=== PATIENT | male | born 1990 | race Caucasian/White ===

== ENCOUNTER 2017-08-24 13:41 | Inpatient (IN) | payer MEDICAID ==
[2017-08-24] VITALS (13 sets, daily range): BP systolic 90–110; BP diastolic 27–80
[~2017-08-24] VITALS: Ht 162.6 cm; Wt 66.8 kg
[2017-08-24] MEDS ORDERED: LORazepam Inj 2mg/ml 1ml IV ONE ×3 (13:45→15:00)
[2017-08-24] MEDS ORDERED: Acetaminophen 650 MG SUPP RECTAL ONE (14:15)
[2017-08-24 14:17] LABS: BASOPHILS % (AUTO) 1.3 % (0.0-2.0); EOSINOPHILS % (AUTO) 0.1 % (0.0-3.0); LYMPHOCYTES % (AUTO) 31.9 % (20.0-45.0); MEAN CORPUSCULAR HEMOGLOBIN 30.7 PG (27.0-31.0); MEAN CORPUSCULAR HGB CONC 32.2 G/DL (32.0-36.0); MEAN CORPUSCULAR VOLUME 95 FL (80-99); MEAN PLATELET VOLUME 5.9 FL (6.5-10.1); MONOCYTES % (AUTO) 9.6 % (1.0-10.0); PLATELET COUNT 402 K/UL (150-450); RED BLOOD COUNT 4.01 M/UL (4.70-6.10); RED CELL DISTRIBUTION WIDTH 12.6 % (11.6-14.8); WHITE BLOOD COUNT 8.3 K/UL (4.8-10.8)
[2017-08-24 14:28] LABS: ANION GAP 25 mmol/L (5-15); CALCIUM 9.7 MG/DL (8.5-10.1); CARBON DIOXIDE 15 MMOL/L (21-32); CHLORIDE 99 MMOL/L (98-107); CREATININE 1.9 MG/DL (0.55-1.30); GLOMERULAR FILTRATION RATE 42.4 mL/min (>60); POTASSIUM 4.8 MMOL/L (3.5-5.1); SODIUM 139 MMOL/L (136-145)
[2017-08-24 14:42] LABS: ALANINE AMINOTRANSFERASE 49 U/L (12-78); ALBUMIN/GLOBULIN RATIO 1.3 (1.0-2.7); ALCOHOL < 3 mg/dL; ASPARTATE AMINO TRANSFERASE 39 U/L (15-37); TOTAL PROTEIN 8.3 G/DL (6.4-8.2)
[2017-08-24 14:43] LABS: ACETAMINOPHEN < 2 MCG/ML (10-30)
[2017-08-24 14:45] LABS: BILIRUBIN,DIRECT 0.3 MG/DL (0.0-0.3)
--- NOTE | 2017-08-24 15:34 | Emergency Room Report ---
History of Present Illness General Chief Complaint: Overdose Source: Patient (ANEESH HUFF) Present Illness HPI The patient is a 26 -year-old male brought in by ambulance for possible overdose. The patient's friend was said to have called 911 after the patient took unknown amount of meth and bath salts together. The friend saw the patient shaking on the ground. Unknown medical history. The patient is unable to provide information at this time. (ANEESH HUFF) Allergies: Coded Allergies: No Known Allergies (Unverified , 08/24/17) Patient History Past Medical History: see triage record Pertinent Family History: unable to obtain Social History: Reports: drug use Reviewed Nursing Documentation: PMH: Agreed, PSxH: Agreed (ANEESH HUFF) Review of Systems All Other Systems: limited (ANEESH HUFF) Physical Exam Vital Signs Date Time Temp Pulse Resp B/P (MAP) Pulse Ox O2 Delivery O2 Flow Rate FiO2 08/24/17 13:37 136 18 146/131 95 Room Air 08/24/17 14:00 107.5 2.0 Sp02 EP Interpretation: reviewed, normal General Appearance: moderate distress Head: normocephalic, atraumatic Eyes: bilateral eye EOMI, bilateral eye other - dilated ENT: normal pharynx, uvula midline, moist mucus membranes Neck: normal inspection, full range of motion, supple Respiratory: no retraction, no accessory muscle use, no wheezing, rhonchi Cardiovascular #1: no edema, no murmur, no rub, tachycardia Gastrointestinal: normal bowel sounds, non tender, soft, non-distended, no guarding, no rebound Musculoskeletal: normal range of motion, other - Periodically contracts all muscles Psychiatric: other - ALOC Skin: normal turgor, other - vitiligo Lymphatic: no adenopathy (ANEESH HUFF) Medical Decision Making PA Attestation Dr. Francois is my supervising physician. Patient management was discussed with my supervising physician (ANEESH HUFF) Diagnostic Impression: Primary Impression: Malignant hyperthemia Qualified Codes: T88.3XXA - Malignant hyperthermia due to anesthesia, initial encounter Additional Impressions: Rhabdomyolysis Qualified Codes: M62.82 - Rhabdomyolysis KACY (acute kidney injury) Drug overdose Qualified Codes: T50.904A - Poisoning by unspecified drugs, medicaments and biological substances, undetermined, initial encounter ER Course The patient is a 26 -year-old male brought in by ambulance for possible overdose. Differential diagnoses considered but not limited to drug abuse, malignant hyperthermia, seizure, among others PE: tachycardia, tachypnea, and significantly febrile at 107.5F. Hypoxia noted as well. A&Ox0 Pupils are equally round. Minimally reactive to light. Pt is having multiple episodes of muscle spasm with jaw clenching Tachycardia. No MRG Bilat rhonchi with tachypnea Abd soft and non distended Skin warm and dry Labs: CBC and CMP are unremarkable. Lactic acid is elevated at 14.4 Drug screen positive for amphetamines ABG most significant for p02 of 49.[address] chest shows primarily L lower lobe aspiration with smaller effusion of R lower lobe Aggressive cooling measures used including multiple liters of IV fluids, cooling blanket, and ice packs. Temperature has reduced to normal levels. Pt is less tachycardic. O2 sat is well with 6L via mask. No need for intubation at this time. pt is being closely monitored and appears to be improving. He is given multiple rounds of IV Ativan as well as several liters of NS. He appears to be improving at this time. Dr. Francois has spoken with Dr. Vance regarding admission. He is in serious but stable condition at this time. Vitals have improved significantly Laboratory Tests Test 08/24/17 13:45 08/24/17 13:55 08/24/17 16:32 08/24/17 18:35 White Blood Count 8.3 K/UL (4.8-10.8) Red Blood Count 4.01 M/UL (4.70-6.10) L Hemoglobin 12.3 G/DL (14.2-18.0) L Hematocrit 38.2 % (42.0-52.0) L Mean Corpuscular Volume 95 FL (80-99) Mean Corpuscular Hemoglobin 30.7 PG (27.0-31.0) Mean Corpuscular Hemoglobin Concent 32.2 G/DL (32.0-36.0) Red Cell Distribution Width 12.6 % (11.6-14.8) Platelet Count 402 K/UL (150-450) Mean Platelet Volume 5.9 FL (6.5-10.1) L Neutrophils (%) (Auto) 57.0 % (45.0-75.0) Lymphocytes (%) (Auto) 31.9 % (20.0-45.0) Monocytes (%) (Auto) 9.6 % (1.0-10.0) Eosinophils (%) (Auto) 0.1 % (0.0-3.0) Basophils (%) (Auto) 1.3 % (0.0-2.0) Sodium Level 139 MMOL/L (136-145) Potassium Level 4.8 MMOL/L (3.5-5.1) Chloride Level 99 MMOL/L (98-107) Carbon Dioxide Level 15 MMOL/L (21-32) L Anion Gap 25 mmol/L (5-15) H Blood Urea Nitrogen 20 mg/dL (7-18) H Creatinine 1.9 MG/DL (0.55-1.30) H Estimate Glomerular Filtration Rate 42.4 mL/min (>60) Glucose Level 80 MG/DL (74-106) Calcium Level 9.7 MG/DL (8.5-10.1) Ferritin 213 NG/ML (8-388) Total Bilirubin 1.2 MG/DL (0.2-1.0) H Direct Bilirubin 0.3 MG/DL (0.0-0.3) Aspartate Amino Transferase (AST) 39 U/L (15-37) H Alanine Aminotransferase (ALT) 49 U/L (12-78) Alkaline Phosphatase 59 U/L (46-116) Total Creatine Kinase 236 U/L (26-308) Creatine Kinase MB 2.0 NG/ML (0.0-3.6) Troponin I 0.000 ng/mL (0.000-0.056) Total Protein 8.3 G/DL (6.4-8.2) H Albumin 4.7 G/DL (3.4-5.0) Globulin 3.6 g/dL Albumin/Globulin Ratio 1.3 (1.0-2.7) Salicylates Level 0.8 ug/mL (2.8-20) L Urine Opiates Screen Negative (NEGATIVE) Acetaminophen Level < 2 MCG/ML (10-30) L Urine Barbiturates Screen Negative (NEGATIVE) Phencyclidine (PCP) Screen Negative (NEGATIVE) Urine Amphetamines Screen Positive (NEGATIVE) H Urine Benzodiazepines Screen Negative (NEGATIVE) Urine Cocaine Screen Negative (NEGATIVE) Urine Marijuana (THC) Screen Positive (NEGATIVE) H Serum Alcohol < 3 mg/dL Lactic Acid Level 14.40 mmol/L (0.66-2.22) H 0.90 mmol/L (0.66-2.22) Arterial Blood pH 7.290 (7.350-7.450) Arterial Blood Partial Pressure CO2 45.5 mmHg (35.0-45.0) H Arterial Blood Partial Pressure O2 49.9 mmHg (75.0-100.0) Arterial Blood HCO3 21.5 mmol/L (22.0-26.0) L Arterial Blood Oxygen Saturation 80.6 % (92.0-98.0) L Arterial Blood Base Excess -5 Jorge Test Positive Lab Results Impression CBC and CMP are unremarkable. Lactic acid is elevated at 14.4 Drug screen positive for amphetamines ABG most significant for p02 of 49.9 (ANEESH HUFF) ER Course See PA obtained HPI, PE, A/P Patient was boarding in the ER for entirety of my shift from 2-10pm - there were no ICU beds available, thus we provided extensive critical care for this sick patient. Please see my critical care additional note Of note, patient's HR down from 160 on arrival to ~100 at time of endorsement to Dr Jarrell at 10pm Patient had mild hypoxia on ABG however CT chest showed only small left sided and right sided aspiration However by time of shift change, patient had been switched from NRB to simple mask at 2L for supplemental O2 With improving HR and reduced temp, we decided not to intubate patient at this time as he was significantly improving Initial CK was WNL but I expect he will have significantly elevated rhabdo given extensive shivering he exhibited on arrival Additionally, we expect profound secondary dehydration from the high fever and sweating Pre-emptively was give given multiple fluid boluses in the ED during his boarding in the ER Patient admitted to ICU (CELSO FRANCOIS M.D.) EKG Diagnostic Results EP Interpretation: Sinus tachycardia Rate: tachycardiac Rhythm: NSR ST Segments: no acute changes ASA given to the pt in ED: No PA Scribe Text EKG seen and interpreted with supervision physician (TERZIAN,ANEESH P.A.) Chest X-Ray Diagnostic Results Chest X-Ray Diagnostic Results : Chest X-Ray Ordered: Yes # of Views/Limited/Complete: 1 View Indication: Shortness of Breath EP Interpretation: Yes PA Xray: Interpretation reviewed, by supervising MD, and agrees with findings. Interpretation: no pneumothorax, other Impression: Other Electronically Signed by: Aneesh Huff PA-C (ANEESH HUFF) CT/MRI/US Diagnostic Results CT/MRI/US Diagnostic Results #1: Imaging Test Ordered: CT head Impression unremarkable CT/MRI/US Diagnostic Results #2: Imaging Test Ordered: CT chest Impression CT chest shows primarily L lower lobe aspiration with smaller effusion of R lower lobe (ANEESH HUFF) Last Vital Signs Date Time Temp Pulse Resp B/P (MAP) Pulse Ox O2 Delivery O2 Flow Rate FiO2 08/24/17 15:00 101.5 136 36 110/58 97 Nasal Cannula 2.0 Status: improved (ANEESH HUFF) Disposition: ADMITTED INPATIENT Condition: Critical Referrals: NOT CHOSEN IPA/,REFERRING (PCP) ANEESH HUFF Aug 24, 2017 15:34 CELSO FRANCOIS M.D. Aug 25, 2017 20:27
--- NOTE | 2017-08-24 16:36 | Consultation ---
Consult Note Assessment/Plan dict polydrug OD malignant hyperthermia AMS acidosis resp failure, hypoxic icu CT brain supportive care CELSO CAMEJO Aug 24, 2017 16:36
[2017-08-24 16:42] LABS: ABG BASE EXCESS -5; ABG PCO2 45.5 mmHg (35.0-45.0)
[2017-08-24 16:43] LABS: ABG ALLEN TEST POSITIVE
[2017-08-24] MEDS ORDERED: LORazepam Inj 2mg/ml 1ml IV PRN (16:45)
[2017-08-24] MEDS ORDERED: Acetaminophen 650 MG SUPP RECTAL PRN (16:45)
[2017-08-24 17:18] LABS: REFLEX LACTIC ACID YES OR NO YES
[2017-08-24] MEDS ORDERED: NKM (19:21)
--- NOTE | 2017-08-24 21:33 | Emergency Room Report ---
History of Present Illness General Chief Complaint: Overdose Source: EMS Present Illness Allergies: Coded Allergies: No Known Allergies (Unverified , 08/24/17) Nursing Documentation-PMH Past Medical History Deferred: Pt Cognitively Impaired Past Medical History: Deferred Physical Exam Vital Signs Date Time Temp Pulse Resp B/P (MAP) Pulse Ox O2 Delivery O2 Flow Rate FiO2 08/24/17 13:37 106.0 136 18 146/131 95 Room Air 08/24/17 14:00 2.0 Procedures Critical Care Time Critical Care Time 45minutes CONOR Schmid was primary provider for this patient however given serious nature of suspected malignant hyperthermia - temp 108, HR 160, I was involved throughout stay. Critical care time includes review of laboratory tests, imaging, review of ABG, review of CT, dosing fluids, tylenol, cooling measures, discussion with patient and family (if available), review of code status/POLS (if available). Critical care time also likely includes assessment of fluid status, stabilization of vital signs, selection and dosing of appropriate antibiotics, selection and dosing of Aspirin/Plavix/Heparin/Lovenox, discussion with PMD/ attending hospitalist/service operations manager. Critical care time does not include any procedures which are documented elsewhere in this EMR. Medical Decision Making Diagnostic Impression: Primary Impression: Malignant hyperpyrexia Qualified Codes: T88.3XXA - Malignant hyperthermia due to anesthesia, initial encounter Additional Impression: Drug overdose Qualified Codes: T50.904A - Poisoning by unspecified drugs, medicaments and biological substances, undetermined, initial encounter Last Vital Signs Date Time Temp Pulse Resp B/P (MAP) Pulse Ox O2 Delivery O2 Flow Rate FiO2 08/24/17 20:15 97.7 104 24 92/65 94 Simple Mask 5.0 Referrals: NOT CHOSEN RUPERTO/,REFERRING (PCP) CELSO FRANCOIS M.D. Aug 24, 2017 21:33
--- NOTE | 2017-08-24 22:32 | Consultation ---
DATE OF CONSULTATION: 08/24/2017 PULMONARY CONSULTATION TIME SEEN: At 4:15 p.m. HISTORY OF PRESENT ILLNESS: The patient is a 26-year-old male, brought in by paramedics from home. A friend apparently called 911 after the patient took an unknown amount of methamphetamine and bath salts. Apparently, he both injected and snorted the methamphetamine and snorted bath salts. The patient was on the ground shaking. PAST MEDICAL HISTORY: Unknown. MEDICATIONS: Unknown. ALLERGIES: None known. REVIEW OF SYSTEMS: Cannot be obtained, the patient is unresponsive. PHYSICAL EXAMINATION: GENERAL: He is well developed and well nourished. VITAL SIGNS: On arrival, the temperature was 107.5 degrees and the heart rate stanton to 160. With cooling measures and Tylenol, the temperature improved to normal at this time and the heart rate is down to 136. The saturation was initially 97%, but now has dropped on room air to 70% and the patient has been placed on a non-rebreather mask. HEENT: Head is normocephalic. NECK: No jugular vein distention. CHEST: Has rhonchi. CARDIAC: Rhythm is regular. Tachycardia. ABDOMEN: Soft and nontender. Liver and spleen not felt. EXTREMITIES: No clubbing, cyanosis, or edema. NEUROLOGIC: Unresponsive, flaccid. LABORATORY AND DIAGNOSTIC DATA: Laboratory studies, the toxicology is positive for amphetamines and marijuana. The white blood count is normal, hemoglobin is 12.3, and platelets are normal. Chemistry shows BUN 20 and creatinine 1.9. CPK is 236. Bilirubin is 1.2. Bicarbonate is 15. Total protein 8.3. Albumin 4.7. Chest x-ray is pending. IMPRESSIONS: 1. Polydrug overdose. 2. Malignant hyperthermia. 3. Acute respiratory failure, hypoxic type. 4. Altered mental status. PLAN: The patient will have a stat chest x-ray. We will check lactic acid in view of the low bicarbonate. CT of the brain will be obtained. He is critically ill and prognosis is guarded. Jorge Luis Babin M.D. DR: Ebony JOB#: [id number] CC: Keri Vance M.D.; Fax#: [phone]
--- NOTE | 2017-08-24 23:25 | Cardiology Progress Note ---
Assessment/Plan Assessment/Plan The patient is seen and examined, full consult note will be dictated shortly. Objective Last 24 Hour Vital Signs Date Time Temp Pulse Resp B/P (MAP) Pulse Ox O2 Delivery O2 Flow Rate FiO2 08/24/17 23:03 100 22 104/45 94 Simple Mask 6.0 08/24/17 21:59 97.9 100 20 105/42 100 Simple Mask 6.0 08/24/17 20:15 97.7 104 24 92/65 94 Simple Mask 5.0 08/24/17 19:00 97.5 105 24 93/42 98 Non-Rebreather 08/24/17 18:00 107 24 90/39 99 Non-Rebreather 08/24/17 17:35 98.4 108 24 93/42 96 Non-Rebreather 08/24/17 17:00 111 24 90/44 94 Non-Rebreather 08/24/17 16:26 98.0 114 26 95 Non-Rebreather 08/24/17 16:20 94.0 115 24 102/49 70 Nasal Cannula 2.0 08/24/17 16:00 98.4 117 24 95/60 95 Nasal Cannula 2.0 08/24/17 15:30 98.0 120 36 99/63 95 Nasal Cannula 2.0 08/24/17 15:00 101.5 136 36 110/58 97 Nasal Cannula 2.0 08/24/17 15:00 101.5 08/24/17 14:20 104.3 150 28 107/80 97 Nasal Cannula 2.0 08/24/17 14:00 107.5 160 28 90/27 97 Nasal Cannula 2.0 08/24/17 13:41 136 18 Room Air 08/24/17 13:37 106.0 136 18 146/131 95 Room Air Intake and Output 08/24/17 08/25/17 19:00 07:00 Intake Total 3000 ml 1450 ml Output Total 650 ml Balance 3000 ml 800 ml Intake Oral 0 ml IV Total 3000 ml 1450 ml Output Urine Total 650 ml Laboratory Tests Test 08/24/17 13:45 08/24/17 13:55 08/24/17 16:32 08/24/17 18:35 White Blood Count 8.3 K/UL (4.8-10.8) Red Blood Count 4.01 M/UL (4.70-6.10) L Hemoglobin 12.3 G/DL (14.2-18.0) L Hematocrit 38.2 % (42.0-52.0) L Mean Corpuscular Volume 95 FL (80-99) Mean Corpuscular Hemoglobin 30.7 PG (27.0-31.0) Mean Corpuscular Hemoglobin Concent 32.2 G/DL (32.0-36.0) Red Cell Distribution Width 12.6 % (11.6-14.8) Platelet Count 402 K/UL (150-450) Mean Platelet Volume 5.9 FL (6.5-10.1) L Neutrophils (%) (Auto) 57.0 % (45.0-75.0) Lymphocytes (%) (Auto) 31.9 % (20.0-45.0) Monocytes (%) (Auto) 9.6 % (1.0-10.0) Eosinophils (%) (Auto) 0.1 % (0.0-3.0) Basophils (%) (Auto) 1.3 % (0.0-2.0) Sodium Level 139 MMOL/L (136-145) Potassium Level 4.8 MMOL/L (3.5-5.1) Chloride Level 99 MMOL/L (98-107) Carbon Dioxide Level 15 MMOL/L (21-32) L Anion Gap 25 mmol/L (5-15) H Blood Urea Nitrogen 20 mg/dL (7-18) H Creatinine 1.9 MG/DL (0.55-1.30) H Estimat Glomerular Filtration Rate 42.4 mL/min (>60) Glucose Level 80 MG/DL (74-106) Calcium Level 9.7 MG/DL (8.5-10.1) Ferritin 213 NG/ML (8-388) Total Bilirubin 1.2 MG/DL (0.2-1.0) H Direct Bilirubin 0.3 MG/DL (0.0-0.3) Aspartate Amino Transf (AST/SGOT) 39 U/L (15-37) H Alanine Aminotransferase (ALT/SGPT) 49 U/L (12-78) Alkaline Phosphatase 59 U/L (46-116) Total Creatine Kinase 236 U/L (26-308) Creatine Kinase MB 2.0 NG/ML (0.0-3.6) Troponin I 0.000 ng/mL (0.000-0.056) Total Protein 8.3 G/DL (6.4-8.2) H Albumin 4.7 G/DL (3.4-5.0) Globulin 3.6 g/dL Albumin/Globulin Ratio 1.3 (1.0-2.7) Salicylates Level 0.8 ug/mL (2.8-20) L Urine Opiates Screen Negative (NEGATIVE) Acetaminophen Level < 2 MCG/ML (10-30) L Urine Barbiturates Screen Negative (NEGATIVE) Phencyclidine (PCP) Screen Negative (NEGATIVE) Urine Amphetamines Screen Positive (NEGATIVE) H Urine Benzodiazepines Screen Negative (NEGATIVE) Urine Cocaine Screen Negative (NEGATIVE) Urine Marijuana (THC) Screen Positive (NEGATIVE) H Serum Alcohol < 3 mg/dL Lactic Acid Level 14.40 mmol/L (0.66-2.22) H 0.90 mmol/L (0.66-2.22) Arterial Blood pH 7.290 (7.350-7.450) Arterial Blood Partial Pressure CO2 45.5 mmHg (35.0-45.0) H Arterial Blood Partial Pressure O2 49.9 mmHg (75.0-100.0) Arterial Blood HCO3 21.5 mmol/L (22.0-26.0) L Arterial Blood Oxygen Saturation 80.6 % (92.0-98.0) L Arterial Blood Base Excess -5 Jorge Test Positive JESSICA REYES Aug 24, 2017 23:25
[2017-08-24] MEDS: dilTIAZem HCl 30mg tab ORAL SCH (23:30)
[2017-08-25] VITALS (15 sets, daily range): BP systolic 89–113; BP diastolic 48–76
--- NOTE | 2017-08-25 00:02 | Consultation ---
DATE OF CONSULTATION: 08/24/2017 HEMATOLOGY/ONCOLOGY CONSULTATION CONSULTING PHYSICIAN: Ottoniel Martinez M.D. REQUESTING PHYSICIAN: Keri Vance M.D. REASON FOR CONSULTATION: Evaluation of anemia. IDENTIFICATION DATA: Dear Dr. Vance: The patient is a pleasant 26-year-old male with past medical history significant for multiple substance abuse and history of unknown amount of meth and bath salts that he has been taking together. The patient's friend called 911. The patient had been shaking. Unknown medical history. Neurology team as well as Pulmonary and other services have been consulted. Hematology consulted for evaluation of malignant hyperthermia as well as anemia. PAST MEDICAL HISTORY: As noted above. None reported as significant. ALLERGIES: No known drug allergies. SOCIAL HISTORY: History of polysubstance abuse. FAMILY HISTORY: Noncontributory. REVIEW OF SYSTEMS: CONSTITUTIONAL: No fevers, chills, or night sweats. SKIN: No rashes, bumps, or itching. HEENT: No headache, hearing or vision changes. BREASTS: No lumps, pain, or discharge. PULMONARY: No cough, sputum, or shortness of breath. GASTROINTESTINAL: No nausea, vomiting, or diarrhea. GENITOURINARY: No dysuria, frequency, or urgency. MUSCULOSKELETAL: No joint swelling, muscle pain, or trauma. PHYSICAL EXAMINATION: VITAL SIGNS: Reviewed. GENERAL: In no acute distress. PULMONARY: Decreased breath sounds. CARDIOVASCULAR: Regular rate. No S3 or S4. ABDOMEN: Soft, nontender, and nondistended. EXTREMITIES: A 1+ edema. LABORATORY DATA: WBC 8.3, hemoglobin 12.3, hematocrit 38, and platelet count 402,000. BUN of 20 and creatinine of 1.9. Urine tox positive for amphetamines as well as marijuana. ASSESSMENT AND RECOMMENDATIONS: 1. Anemia secondary to chronic disease, likely secondary to polysubstance abuse as well. Continue to closely monitor. 2. Malignant hyperthermia, likely related to drug use. Hematology with Nephrology team as well as Pulmonary team. Potential drug overdose. 3. Polysubstance abuse history in the past with altered mental status. 4. Lactic acidosis. 5. Respiratory failure, hypoxic. The patient's CAT scan of the brain is pending. 6. I appreciate consultants care. 7. Acute kidney injury, to be seen by Nephrology Service. I appreciate the consultation. Ottoniel Martinez M.D. DR: HERNANDO JOB#: [id number] CC:
[2017-08-25] MEDS: Albuterol ud Inhalation HHN SCH ×4 (01:00→18:58)
[2017-08-25 04:42] LABS: MEAN CORPUSCULAR HEMOGLOBIN 30.7 PG (27.0-31.0); MEAN CORPUSCULAR VOLUME 93 FL (80-99); MEAN PLATELET VOLUME 6.2 FL (6.5-10.1); PLATELET COUNT 217 K/UL (150-450); RED BLOOD COUNT 3.49 M/UL (4.70-6.10); RED CELL DISTRIBUTION WIDTH 12.4 % (11.6-14.8); WHITE BLOOD COUNT 7.6 K/UL (4.8-10.8)
[2017-08-25 05:11] LABS: ALANINE AMINOTRANSFERASE 148 U/L (12-78); ALBUMIN/GLOBULIN RATIO 1.1 (1.0-2.7); ANION GAP 12 mmol/L (5-15); ASPARTATE AMINO TRANSFERASE 554 U/L (15-37); CALCIUM 7.4 MG/DL (8.5-10.1); CARBON DIOXIDE 20 MMOL/L (21-32); CHLORIDE 104 MMOL/L (98-107); CREATININE 0.9 MG/DL (0.55-1.30); GLOMERULAR FILTRATION RATE > 60 mL/min (>60); POTASSIUM 3.9 MMOL/L (3.5-5.1); SODIUM 136 MMOL/L (136-145); TOTAL PROTEIN 5.9 G/DL (6.4-8.2)
[2017-08-25 05:17] LABS: BILIRUBIN,DIRECT 0.3 MG/DL (0.0-0.3)
[2017-08-25] MEDS: dilTIAZem HCl 30mg tab ORAL SCH (06:00)
[2017-08-25 09:16] LABS: CRP QUANT 3.7 mg/dL (0.00-0.90); MAGNESIUM 1.7 MG/DL (1.8-2.4); URIC ACID 8.1 MG/DL (2.6-7.2)
--- NOTE | 2017-08-25 09:47 | Consultation ---
Consult Note Consult Note The patient is a 26 -year-old male brought in by ambulance for possible overdose. The patient's friend was said to have called 911 after the patient took unknown amount of meth and bath salts together. The friend saw the patient shaking on the ground. Unknown medical history. The patient is unable to provide information at this time. Assessment/Plan 1. Polydrug overdose. 2. Malignant hyperthermia. 3. Acute respiratory failure, hypoxic type. 4. Altered mental status. today: Much improved electrolytes OK breathing easy tachy Plan: NARCISA downing cont IV hydrate SERGE MACHUCA Aug 25, 2017 09:47
[2017-08-25] MEDS ORDERED: Pantoprazole Inj IVP SCH (10:00)
[2017-08-25] MEDS ORDERED: Metoprolol 25mg tab ORAL ONE (10:15)
--- NOTE | 2017-08-25 11:04 | Neurology Progress Note ---
Objective Physical Exam Last Vital Signs Date Time Temp Pulse Resp B/P (MAP) Pulse Ox O2 Delivery O2 Flow Rate FiO2 08/25/17 10:58 112 108/88 08/25/17 10:00 17 100 Room Air 08/25/17 09:00 2.0 08/25/17 08:00 99.1 08/25/17 07:10 28 Laboratory Tests Test 08/24/17 13:45 08/24/17 13:55 08/24/17 16:32 08/24/17 18:35 White Blood Count 8.3 K/UL (4.8-10.8) Red Blood Count 4.01 M/UL (4.70-6.10) L Hemoglobin 12.3 G/DL (14.2-18.0) L Hematocrit 38.2 % (42.0-52.0) L Mean Corpuscular Volume 95 FL (80-99) Mean Corpuscular Hemoglobin 30.7 PG (27.0-31.0) Mean Corpuscular Hemoglobin Concent 32.2 G/DL (32.0-36.0) Red Cell Distribution Width 12.6 % (11.6-14.8) Platelet Count 402 K/UL (150-450) Mean Platelet Volume 5.9 FL (6.5-10.1) L Neutrophils (%) (Auto) 57.0 % (45.0-75.0) Lymphocytes (%) (Auto) 31.9 % (20.0-45.0) Monocytes (%) (Auto) 9.6 % (1.0-10.0) Eosinophils (%) (Auto) 0.1 % (0.0-3.0) Basophils (%) (Auto) 1.3 % (0.0-2.0) Sodium Level 139 MMOL/L (136-145) Potassium Level 4.8 MMOL/L (3.5-5.1) Chloride Level 99 MMOL/L (98-107) Carbon Dioxide Level 15 MMOL/L (21-32) L Anion Gap 25 mmol/L (5-15) H Blood Urea Nitrogen 20 mg/dL (7-18) H Creatinine 1.9 MG/DL (0.55-1.30) H Estimat Glomerular Filtration Rate 42.4 mL/min (>60) Glucose Level 80 MG/DL (74-106) Calcium Level 9.7 MG/DL (8.5-10.1) Ferritin 213 NG/ML (8-388) Total Bilirubin 1.2 MG/DL (0.2-1.0) H Direct Bilirubin 0.3 MG/DL (0.0-0.3) Aspartate Amino Transf (AST/SGOT) 39 U/L (15-37) H Alanine Aminotransferase (ALT/SGPT) 49 U/L (12-78) Alkaline Phosphatase 59 U/L (46-116) Total Creatine Kinase 236 U/L (26-308) Creatine Kinase MB 2.0 NG/ML (0.0-3.6) Troponin I 0.000 ng/mL (0.000-0.056) Total Protein 8.3 G/DL (6.4-8.2) H Albumin 4.7 G/DL (3.4-5.0) Globulin 3.6 g/dL Albumin/Globulin Ratio 1.3 (1.0-2.7) Salicylates Level 0.8 ug/mL (2.8-20) L Urine Opiates Screen Negative (NEGATIVE) Acetaminophen Level < 2 MCG/ML (10-30) L Urine Barbiturates Screen Negative (NEGATIVE) Phencyclidine (PCP) Screen Negative (NEGATIVE) Urine Amphetamines Screen Positive (NEGATIVE) H Urine Benzodiazepines Screen Negative (NEGATIVE) Urine Cocaine Screen Negative (NEGATIVE) Urine Marijuana (THC) Screen Positive (NEGATIVE) H Serum Alcohol < 3 mg/dL Lactic Acid Level 14.40 mmol/L (0.66-2.22) H 0.90 mmol/L (0.66-2.22) Arterial Blood pH 7.290 (7.350-7.450) Arterial Blood Partial Pressure CO2 45.5 mmHg (35.0-45.0) H Arterial Blood Partial Pressure O2 49.9 mmHg (75.0-100.0) Arterial Blood HCO3 21.5 mmol/L (22.0-26.0) L Arterial Blood Oxygen Saturation 80.6 % (92.0-98.0) L Arterial Blood Base Excess -5 Jorge Test Positive Test 08/25/17 03:10 White Blood Count 7.6 K/UL (4.8-10.8) Red Blood Count 3.49 M/UL (4.70-6.10) L Hemoglobin 10.7 G/DL (14.2-18.0) L Hematocrit 32.4 % (42.0-52.0) L Mean Corpuscular Volume 93 FL (80-99) Mean Corpuscular Hemoglobin 30.7 PG (27.0-31.0) Mean Corpuscular Hemoglobin Concent 33.0 G/DL (32.0-36.0) Red Cell Distribution Width 12.4 % (11.6-14.8) Platelet Count 217 K/UL (150-450) Mean Platelet Volume 6.2 FL (6.5-10.1) L Neutrophils (%) (Auto) % (45.0-75.0) Lymphocytes (%) (Auto) % (20.0-45.0) Monocytes (%) (Auto) % (1.0-10.0) Eosinophils (%) (Auto) % (0.0-3.0) Basophils (%) (Auto) % (0.0-2.0) Sodium Level 136 MMOL/L (136-145) Potassium Level 3.9 MMOL/L (3.5-5.1) Chloride Level 104 MMOL/L (98-107) Carbon Dioxide Level 20 MMOL/L (21-32) L Anion Gap 12 mmol/L (5-15) Blood Urea Nitrogen 17 mg/dL (7-18) Creatinine 0.9 MG/DL (0.55-1.30) # Estimat Glomerular Filtration Rate > 60 mL/min (>60) Glucose Level 86 MG/DL (74-106) Uric Acid 8.1 MG/DL (2.6-7.2) H Calcium Level 7.4 MG/DL (8.5-10.1) #L Phosphorus Level 4.0 MG/DL (2.5-4.9) Magnesium Level 1.7 MG/DL (1.8-2.4) L Total Bilirubin 1.3 MG/DL (0.2-1.0) H Direct Bilirubin 0.3 MG/DL (0.0-0.3) Aspartate Amino Transf (AST/SGOT) 554 U/L (15-37) H Alanine Aminotransferase (ALT/SGPT) 148 U/L (12-78) H Alkaline Phosphatase 45 U/L (46-116) L Total Creatine Kinase 16854 U/L (26-308) H C-Reactive Protein, Quantitative 3.7 mg/dL (0.00-0.90) H Total Protein 5.9 G/DL (6.4-8.2) L Albumin 3.1 G/DL (3.4-5.0) L Globulin 2.8 g/dL Albumin/Globulin Ratio 1.1 (1.0-2.7) Impression/Recommendations Recommendations # [id number] ALESSANDRA FARIAS Aug 25, 2017 11:04
--- NOTE | 2017-08-25 11:29 | Diagnostic Imaging Report ---
Indication: Chest pain Technique: One view of the chest Comparison: Findings: Lungs and pleural spaces are clear. Heart size is normal Impression: No acute process
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
--- NOTE | 2017-08-25 11:54 | Diagnostic Imaging Report ---
Indication: Altered mental status Technique: Continuous helical CT scanning of the head was performed without intravenous contrast material. Axial and coronal 5 mm sections were generated. Radiation dose was minimized using automated exposure control Dose: Total Dose Length Product - DLP [address] Dose Index - CTDIvol(s) 70.38 mGy. Comparison: none Findings: The ventricular system is normal in size and configuration. There is no shift of midline structures. No abnormal extra-axial fluid collections are noted. There is no evidence of intracerebral bleeding. No other abnormal high or low density areas are noted within the brain. Impression: Normal CT scan of the head without contrast material. This agrees with the preliminary interpretation provided overnight by [facility]. The CT scanner at [facility] is accredited by the [employer] and the scans are performed using protocols designed to limit radiation exposure to as low as reasonably achievable to attain images of sufficient resolution adequate for diagnostic evaluation.
--- NOTE | 2017-08-25 11:59 | Diagnostic Imaging Report ---
Clinical Indication: Chest pain Technique: Spiral acquisitions obtained through the chest. No IV contrast utilized, reason not stated. Multiplanar reconstructions generated. Total dose length product 641.01 mGycm. CTDIvol(s) 19 mGy. Dose reduction achieved using automated exposure control Comparison: none Findings: Considerable nodular consolidative opacities are seen in the left lower lobe, as well as background diffuse groundglass opacity of the left lower lobe. There are scattered faint patchy groundglass opacities throughout the right lower lobe. The upper lobes and right middle lobe are clear. No effusions., Likely related frothy material is seen within the right lower lobe bronchus. No pericardial effusion. Normal heart size. Somewhat prominent fluid-filled distal esophagus. No mediastinal or hilar mass or adenopathy. No axillary or chest wall mass or adenopathy. The bones are intact. The upper abdominal anatomy is remarkable for focal fatty infiltration of the liver in the usual location adjacent to the falciform ligament Impression: Considerable left lower lobe nodular consolidative and groundglass opacities, nonspecific but likely reflecting pneumonia.. Faint scattered opacities in the right lobe. Material in the right lower lobe bronchus could represent secretions but raises possibility no aspiration Incidental finding focal hepatic fatty infiltration This agrees with the preliminary interpretation provided overnight by [facility]. The CT scanner at [facility] is accredited by the [employer] and the scans are performed using protocols designed to limit radiation exposure to as low as reasonably achievable to attain images of sufficient resolution adequate for diagnostic evaluation.
[2017-08-25] MEDS ORDERED: cefTRIAXone 1 GM in D5W 55 ML IVPB SCH (12:00)
[2017-08-25] MEDS ORDERED: Acetaminophen 650 MG SUPP RECTAL PRN (12:45)
[2017-08-25] MEDS: cefTRIAXone 1 GM in D5W 55 ML IVPB SCH (13:19)
--- NOTE | 2017-08-25 14:52 | Diagnostic Imaging Report ---
Indication: Shortness of breath Technique: One view of the chest Comparison: 08/24/2017 Findings: There has been interim development of retrocardiac and left lower lobe hazy consolidation. Pleural spaces are clear. The right lung base is clear; opacities seen on earlier chest CT are not evident radiographically. The heart size is normal Impression: Over one day, interim development of hazy left basilar infiltrate, also demonstrated on recent chest CT. Other findings as noted
--- NOTE | 2017-08-25 16:44 | Cardiology Report ---
APPROVED REPORT EKG Measurement Heart [id number] Normal sinus rhythm Rightward axis Prolonged QT Abnormal ECG
--- NOTE | 2017-08-25 17:22 | Pulmonology Progress Note ---
Assessment/Plan Assessment/Plan 1. Polydrug overdose. 2. Malignant hyperthermia, resolved 3. Acute respiratory failure, hypoxic type, resolved 4. Altered mental status, resolved 5. Pneumonia 6. Lupus abx advised he almost rec no more drugs Subjective Constitutional: Denies: fever Respiratory: Reports: productive cough Allergies: Coded Allergies: No Known Allergies (Unverified , 08/24/17) Objective Last 24 Hour Vital Signs Date Time Temp Pulse Resp B/P (MAP) Pulse Ox O2 Delivery O2 Flow Rate FiO2 08/25/17 16:00 97.6 87 17 104/58 96 08/25/17 13:49 103 18 100 Room Air 21 08/25/17 13:40 99 18 Room Air 21 08/25/17 11:40 98.9 100 18 101/64 99 Room Air 08/25/17 11:00 108 18 113/71 98 Room Air 08/25/17 10:58 112 108/88 08/25/17 10:00 113 17 108/55 100 Room Air 08/25/17 09:00 106 20 102/63 100 Nasal Cannula 2.0 08/25/17 08:00 104 08/25/17 08:00 99.1 104 21 105/53 100 Nasal Cannula 2.0 08/25/17 07:10 100 Nasal Cannula 2.0 28 08/25/17 07:10 Nasal Cannula 2.0 28 08/25/17 07:05 108 18 100 Nasal Cannula 2.0 28 08/25/17 07:00 101 22 112/52 100 Simple Mask 6.0 08/25/17 06:55 105 22 100 Simple Mask 6.0 08/25/17 06:54 105 22 Simple Mask 6.0 08/25/17 06:00 103 104/48 08/25/17 06:00 103 21 104/48 100 Simple Mask 6.0 08/25/17 05:00 103 24 105/59 100 Simple Mask 6.0 08/25/17 04:00 106 08/25/17 04:00 98.5 106 21 107/54 100 Simple Mask 6.0 08/25/17 03:00 101 19 89/56 100 Simple Mask 6.0 08/25/17 02:00 100 20 104/54 100 Simple Mask 6.0 08/25/17 01:00 99 22 104/51 100 Simple Mask 6.0 08/25/17 00:00 97.7 96 21 104/51 100 Simple Mask 6.0 08/25/17 00:00 97 08/24/17 23:30 90 98/62 08/24/17 23:03 100 22 104/45 94 Simple Mask 6.0 08/24/17 23:00 97.6 96 20 99/62 100 Simple Mask 6.0 08/24/17 21:59 97.9 100 20 105/42 100 Simple Mask 6.0 08/24/17 20:15 97.7 104 24 92/65 94 Simple Mask 5.0 08/24/17 19:00 97.5 105 24 93/42 98 Non-Rebreather 08/24/17 18:00 107 24 90/39 99 Non-Rebreather 08/24/17 17:35 98.4 108 24 93/42 96 Non-Rebreather Intake and Output 08/24/17 08/25/17 19:00 07:00 Intake Total 3000 ml 2650 ml Output Total 2345 ml Balance 3000 ml 305 ml Intake Oral 0 ml IV Total 3000 ml 2650 ml Output Urine Total 2345 ml General Appearance: no acute distress HEENT: atraumatic Respiratory/Chest: lungs clear Cardiovascular: normal rate Abdomen: soft, non tender Laboratory Tests 08/24/17 18:35: Lactic Acid Level 0.90 08/25/17 03:10: White Blood Count 7.6, Red Blood Count 3.49L, Hemoglobin 10.7L, Hematocrit 32.4L , Mean Corpuscular Volume 93, Mean Corpuscular Hemoglobin 30.7, Mean Corpuscular Hemoglobin Concent 33.0, Red Cell Distribution Width 12.4, Platelet Count 217, Mean Platelet Volume 6.2L, Neutrophils (%) (Auto) , Lymphocytes (%) ( Auto) , Monocytes (%) (Auto) , Eosinophils (%) (Auto) , Basophils (%) (Auto) , Sodium Level 136, Potassium Level 3.9, Chloride Level 104, Carbon Dioxide Level 20L, Anion Gap 12, Blood Urea Nitrogen 17, Creatinine 0.9#, Estimat Glomerular Filtration Rate > 60, Glucose Level 86, Uric Acid 8.1H, Calcium Level 7.4#L, Phosphorus Level 4.0, Magnesium Level 1.7L, Total Bilirubin 1.3H, Direct Bilirubin 0.3, Aspartate Amino Transf (AST/SGOT) 554H, Alanine Aminotransferase (ALT/SGPT) 148H, Alkaline Phosphatase 45L, Total Creatine Kinase 73390H, C- Reactive Protein, Quantitative 3.7H, Total Protein 5.9L, Albumin 3.1L, Globulin 2.8, Albumin/Globulin Ratio 1.1 Current Medications Medications (Trade) Dose Ordered Sig/Antony Route PRN Reason Start Time Stop Time Status Last Admin Dose Admin Acetaminophen (Tylenol) 650 mg Q4H PRN RECTAL Mild Pain (Pain Scale 1-3) 08/25/17 12:45 09/23/17 16:44 Albuterol Sulfate (Proventil) 2.5 mg Q6HRT HHN 08/25/17 13:00 08/29/17 16:59 08/25/17 13:48 Ceftriaxone Sodium 1 gm/ Dextrose 55 ml @ 110 mls/hr Q24H IVPB 08/25/17 13:00 09/01/17 12:59 08/25/17 13:19 Dextrose (Dextrose 50%) STAT PRN IV Hypoglycemia 08/25/17 16:45 09/23/17 16:44 Emtricitabine/ Tenofovir (Truvada 200/ 300mg) 1 tab DAILY ORAL 08/25/17 12:00 09/24/17 11:59 08/25/17 12:48 Lorazepam (Ativan 2mg/ml 1ml) 1 mg Q3H PRN IV For Anxiety 08/25/17 13:45 08/31/17 16:44 Metoprolol Tartrate (Lopressor) 25 mg Q12HR ORAL 08/25/17 21:00 09/24/17 20:59 Ondansetron HCl (Zofran) 4 mg Q6H PRN IVP Nausea & Vomiting 08/25/17 16:45 09/23/17 16:44 Ranitidine HCl (Zantac) 150 mg TWICE A DAY ORAL 08/25/17 18:00 09/24/17 17:59 Sodium Chloride 1,000 ml @ 150 mls/hr Q6H40M IVLG 08/25/17 12:15 09/23/17 12:14 08/25/17 12:48 CELSO CAMEJO Aug 25, 2017 17:22
[2017-08-25] MEDS ORDERED: Metoprolol 25mg tab ORAL SCH (21:00)
--- NOTE | 2017-08-25 21:09 | General Progress Note ---
Assessment/Plan Assessment/Plan ASSESSMENT AND RECOMMENDATIONS: 1. Anemia secondary to chronic disease, likely secondary to polysubstance abuse as well. Continue to closely monitor. Ferritin level is wnl. 2. 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 Resolved. 3. Polysubstance abuse history in the past with altered mental status. 4. Lactic acidosis. Resolved. 5. Respiratory failure, hypoxic. Resolved. Subjective Hematologic/Lymphatic: Reports: anemia Allergies: Coded Allergies: No Known Allergies (Unverified , 08/24/17) All Systems: reviewed and negative except above Subjective NAD Objective Last 24 Hour Vital Signs Date Time Temp Pulse Resp B/P (MAP) Pulse Ox O2 Delivery O2 Flow Rate FiO2 08/25/17 19:05 111 18 100 Room Air 21 08/25/17 19:05 100 Room Air 2.0 21 08/25/17 19:05 Room Air 2.0 21 08/25/17 18:58 103 18 99 Room Air 21 08/25/17 16:00 97.6 87 17 104/58 96 08/25/17 13:49 103 18 100 Room Air 21 08/25/17 13:40 99 18 Room Air 21 08/25/17 11:40 98.9 100 18 101/64 99 Room Air 08/25/17 11:00 108 18 113/71 98 Room Air 08/25/17 10:58 112 108/88 08/25/17 10:00 113 17 108/55 100 Room Air 08/25/17 09:00 106 20 102/63 100 Nasal Cannula 2.0 08/25/17 08:00 104 08/25/17 08:00 99.1 104 21 105/53 100 Nasal Cannula 2.0 08/25/17 07:10 100 Nasal Cannula 2.0 28 08/25/17 07:10 Nasal Cannula 2.0 28 08/25/17 07:05 108 18 100 Nasal Cannula 2.0 28 08/25/17 07:00 101 22 112/52 100 Simple Mask 6.0 08/25/17 06:55 105 22 100 Simple Mask 6.0 08/25/17 06:54 105 22 Simple Mask 6.0 08/25/17 06:00 103 104/48 08/25/17 06:00 103 21 104/48 100 Simple Mask 6.0 08/25/17 05:00 103 24 105/59 100 Simple Mask 6.0 08/25/17 04:00 106 08/25/17 04:00 98.5 106 21 107/54 100 Simple Mask 6.0 08/25/17 03:00 101 19 89/56 100 Simple Mask 6.0 08/25/17 02:00 100 20 104/54 100 Simple Mask 6.0 08/25/17 01:00 99 22 104/51 100 Simple Mask 6.0 08/25/17 00:00 97.7 96 21 104/51 100 Simple Mask 6.0 08/25/17 00:00 97 08/24/17 23:30 90 98/62 08/24/17 23:03 100 22 104/45 94 Simple Mask 6.0 08/24/17 23:00 97.6 96 20 99/62 100 Simple Mask 6.0 08/24/17 21:59 97.9 100 20 105/42 100 Simple Mask 6.0 Intake and Output 08/24/17 08/25/17 19:00 07:00 Intake Total 3000 ml 2650 ml Output Total 2345 ml Balance 3000 ml 305 ml Intake Oral 0 ml IV Total 3000 ml 2650 ml Output Urine Total 2345 ml Laboratory Tests 08/25/17 03:10: White Blood Count 7.6, Red Blood Count 3.49L, Hemoglobin 10.7L, Hematocrit 32.4L , Mean Corpuscular Volume 93, Mean Corpuscular Hemoglobin 30.7, Mean Corpuscular Hemoglobin Concent 33.0, Red Cell Distribution Width 12.4, Platelet Count 217, Mean Platelet Volume 6.2L, Neutrophils (%) (Auto) , Lymphocytes (%) ( Auto) , Monocytes (%) (Auto) , Eosinophils (%) (Auto) , Basophils (%) (Auto) , Sodium Level 136, Potassium Level 3.9, Chloride Level 104, Carbon Dioxide Level 20L, Anion Gap 12, Blood Urea Nitrogen 17, Creatinine 0.9#, Estimat Glomerular Filtration Rate > 60, Glucose Level 86, Uric Acid 8.1H, Calcium Level 7.4#L, Phosphorus Level 4.0, Magnesium Level 1.7L, Total Bilirubin 1.3H, Direct Bilirubin 0.3, Aspartate Amino Transf (AST/SGOT) 554H, Alanine Aminotransferase (ALT/SGPT) 148H, Alkaline Phosphatase 45L, Total Creatine Kinase 31412L, C- Reactive Protein, Quantitative 3.7H, Total Protein 5.9L, Albumin 3.1L, Globulin 2.8, Albumin/Globulin Ratio 1.1 Height (Feet): 5 Height (Inches): 4.00 Weight (Pounds): 147 General Appearance: no apparent distress EENT: normal ENT inspection Neck: normal alignment Cardiovascular: normal peripheral pulses 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
[2017-08-25] MEDS: Metoprolol 25mg tab ORAL SCH (21:29)
--- NOTE | 2017-08-25 22:30 | Consultation ---
DATE OF CONSULTATION: 08/25/2017 NEUROLOGICAL CONSULTATION CONSULTING PHYSICIAN: Cody Conway M.D. REQUESTING PHYSICIAN: Keri Vance M.D. HISTORY OF PRESENT ILLNESS: This 26-year-old male seen in neurological consultation to evaluate drug overdose with change in mental status. According to the patient and his partner know that for the last three days, they were heavily smoking and snorting methamphetamines. Last night during the republican, they were offered meth mixed with bath salt, which is "hallucinogen." This was taken a significant amount, and after he "shoved bag with to his rectum," he developed high fevers and became confused. At that point, paramedics were called to the scene. He was brought with a diagnosis of possible overdose. His friend described that the patient presented with what appears generalized seizure prior to paramedic rn arrival. Vital signs on admission, blood pressure 146/131, heart rate of 136, temperature 107.5. He was periodically vazquez core muscles, moderate distress, pupils were dilated. The patient was hypoxic. Several episodes of muscle spasm with jaw clenching were described. There was bilateral rhonchi with tachypnea. His lab work included mild anemia, hemoglobin 12.3, hematocrit 38.2. Chemistry panel with elevated carbon dioxide of 59, anion gap of 25, BUN of 20, creatinine 1.9. Normal troponin. CPK 236. Total protein 8.3. Later CPK was 22,334 with elevated AST 554 and ALT 148. Low calcium and magnesium. Lactic acid elevated at 14.4 and uric acid 8.1. Toxicology panel positive for marijuana and amphetamines. Saturation initially 97%, dropped on room air to 70%. The patient was placed on nonrebreathing mask and a cooling blanket. CT scan of the brain was obtained, was negative. CT of the chest revealed primarily left lower lobe aspiration with small effusion on the right lower lobe. Aggressive cooling measures included multiple liters of IV fluids, cooling blanket, and ice packs. With it, temperature was reduced to normal level and he became less tachypneic, intubation for that. He was given IV Ativan and continued with normal saline. Since admission till present, gradually became fully awake. The patient was examined in presence of his boyfriend who informed that the patient has a long history of substance abuse, predominantly methamphetamines, occasional alcohol. Also informed that the patient had non-protected sex in last few days and he would like to have treatment for HIV prevention. REVIEW OF SYSTEMS: Generalized weakness, difficult to ambulation, tremors of arms. Denies headache. No dizziness. No chest pain or palpitations. No respiratory problems. Denies abdominal pain or discomfort. No urine or bowel incontinence. PAST MEDICAL HISTORY: History of SLE, diagnosed few years ago; history of hepatitis C, not treated; had a single episode of seizure due to drug abuse two years ago. He has a history of depression "low energy condition." He is HIV negative. He had previous episodes of profound generalized weakness and inability to ambulate. FAMILY HISTORY: His mother suffered from alcohol abuse and has hand tremors. TREATMENT PRIOR TO ADMISSION: No medications were taken. The patient is not engaged in any sport activities. He is between works now. 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 PHYSICAL EXAMINATION: GENERAL: A well-developed, well-nourished man not in acute distress, lying comfortably in bed. His boyfriend is at the bedside. VITAL SIGNS: Included heart rate of 106, blood pressure 102/63, temperature 99.1. HEENT: Head, normocephalic. No evidence of trauma. There are signs of vitiligo on face and arms. NEUROLOGIC: Peripheral pulses 1+ and symmetric. MENTAL STATUS: He is alert and oriented x3. No evidence of aphasia or apraxia. He is somewhat tense and anxious. CRANIAL NERVE II: Pupils both responding to light and accommodation. Extraocular movements intact. No nystagmus. CRANIAL NERVE V: Normal corneal responses. CRANIAL NERVE VII: No facial asymmetry. CRANIAL NERVE VIII: Grossly normal hearing. CRANIAL NERVES IX THROUGH XII: Within normal limits. MOTOR EXAMINATION: Revealed resting and action tremor of both upper extremities. Strength is 5/5 in both upper extremities, 4/5 in left lower extremity, 4-/5 in right lower extremity. Lifting legs produce some aching sensation in both legs. Deep tendon reflexes 2+, bilaterally symmetric, with no pathological responses. SENSORY EXAMINATION: Normal to pinprick and light touch. Gait not tested. IMPRESSION: 1. Acute intoxication with methamphetamine/bath salt, resulting in a toxic encephalopathy, malignant hyperthermia. 2. Renal insufficiency. 3. Normal transaminases, history of hepatitis C. 4. Chronic substance abuse. 5. Essential tremor versus exaggerated physiological tremor. 6. History of depression. 7. History of systemic lupus erythematosus. RECOMMENDATIONS: Continue current treatment. Add thiamine 100 mg daily. Avoid hypertension and maintain systolic blood pressure above 110, below 140. Continue with hydration. Consider adding Truvada for HIV prevention. Observe for any paroxysmal events. Thank you for allowing me to see this interesting patient in neurological consultation. Cody Conway M.D. DR: Joy JOB#: [id number] CC:
--- NOTE | 2017-08-25 22:30 | Consultation ---
DATE OF CONSULTATION: 08/24/2017 INFECTIOUS DISEASES CONSULTATION CONSULTING PHYSICIAN: Alex Becker M.D. PRIMARY ATTENDING PHYSICIAN: Keri Hammer M.D. REASON FOR CONSULT: Aspiration pneumonitis. HISTORY OF PRESENT ILLNESS: The patient is a 26-year-old white male, admitted yesterday for apparent drug overdose reaction. He takes methamphetamine and bath salts. After taking these, he developed hyperthermia. He had a temperature of 107.5 in the ER. He had acute renal failure and rhabdomyolysis that is improving today. PAST MEDICAL HISTORY: Significant for vitiligo. ALLERGIES: No known drug allergies. MEDICATIONS: Metoprolol, ranitidine, Zofran, ceftriaxone, albuterol and getting Truvada for pre-exposure prophylaxis for HIV. SOCIAL HISTORY: He lives with a male partner. Smoker. He uses methamphetamine and drinks alcohol occasionally. REVIEW OF SYSTEMS: As history of present illness. Fever is resolved and has some productive cough. PHYSICAL EXAMINATION: VITAL SIGNS: Temperature 98.9, pulse 100, and blood pressure is 101/64. GENERAL APPEARANCE: No acute distress. HEAD AND NECK: No oral lesion. HEART: Tachycardic. LUNGS: Clear. ABDOMEN: Soft and nontender. EXTREMITIES: Has no edema. SKIN: There is pigmentation on hand and around the mouth. NEUROLOGICAL: Awake, alert and oriented x3. LABORATORY DATA: WBC 7.6, hemoglobin 10.7, hematocrit 32.4, and platelets 217. Sodium 136, potassium 3.9, chloride 104, bicarbonate 20, BUN 17, creatinine 0.9 and glucose 86. AST 554 [place] [address]. Albumin is 3.1. CT scan of the chest, there is opacity of left lower lobe likely pneumonia. Head CT was negative. Chest x-ray was negative. IMPRESSION: 1. Aspiration pneumonitis most likely chemical but the patient also may have aspiration pneumonia. 2. Hypoxemic respiratory failure that is resolved. 3. Rhabdomyolysis. 4. Elevated transaminase. 5. Acute renal failure that is resolving. 6. Anemia. 7. Polysubstance abuse including methamphetamine and bath salts. 8. Hyperthermia. RECOMMENDATION: We will continue Rocephin for few days. If the patient becomes better, we will stop antibiotics. At the end of my exam, I thank, Dr. Vance, for involving me in the care of this patient. Alex Becker M.D. DR: BLAYNE JOB#: [id number] CC:
--- NOTE | 2017-08-25 23:00 | General Progress Note ---
Assessment/Plan Assessment/Plan jAssessment - Drug overdose - Rhabdo - Abnormal LFT - likely false (+) - Nause, diarrhea - likely reactive and transient Recommendations - push po - follow labs - abd ultrasound Subjective Allergies: Coded Allergies: No Known Allergies (Unverified , 08/24/17) Objective Last 24 Hour Vital Signs Date Time Temp Pulse Resp B/P (MAP) Pulse Ox O2 Delivery O2 Flow Rate FiO2 08/25/17 21:29 93 108/69 08/25/17 20:00 97.5 95 20 110/76 98 08/25/17 19:05 111 18 100 Room Air 21 08/25/17 19:05 100 Room Air 2.0 21 08/25/17 19:05 Room Air 2.0 21 08/25/17 18:58 103 18 99 Room Air 21 08/25/17 16:00 97.6 87 17 104/58 96 08/25/17 13:49 103 18 100 Room Air 21 08/25/17 13:40 99 18 Room Air 21 08/25/17 11:40 98.9 100 18 101/64 99 Room Air 08/25/17 11:00 108 18 113/71 98 Room Air 08/25/17 10:58 112 108/88 08/25/17 10:00 113 17 108/55 100 Room Air 08/25/17 09:00 106 20 102/63 100 Nasal Cannula 2.0 08/25/17 08:00 104 08/25/17 08:00 99.1 104 21 105/53 100 Nasal Cannula 2.0 08/25/17 07:10 100 Nasal Cannula 2.0 28 08/25/17 07:10 Nasal Cannula 2.0 28 08/25/17 07:05 108 18 100 Nasal Cannula 2.0 28 08/25/17 07:00 101 22 112/52 100 Simple Mask 6.0 08/25/17 06:55 105 22 100 Simple Mask 6.0 08/25/17 06:54 105 22 Simple Mask 6.0 08/25/17 06:00 103 104/48 08/25/17 06:00 103 21 104/48 100 Simple Mask 6.0 08/25/17 05:00 103 24 105/59 100 Simple Mask 6.0 08/25/17 04:00 106 08/25/17 04:00 98.5 106 21 107/54 100 Simple Mask 6.0 08/25/17 03:00 101 19 89/56 100 Simple Mask 6.0 08/25/17 02:00 100 20 104/54 100 Simple Mask 6.0 08/25/17 01:00 99 22 104/51 100 Simple Mask 6.0 08/25/17 00:00 97.7 96 21 104/51 100 Simple Mask 6.0 08/25/17 00:00 97 08/24/17 23:30 90 98/62 08/24/17 23:03 100 22 104/45 94 Simple Mask 6.0 08/24/17 23:00 97.6 96 20 99/62 100 Simple Mask 6.0 Intake and Output 08/24/17 08/25/17 19:00 07:00 Intake Total 3000 ml 2650 ml Output Total 2345 ml Balance 3000 ml 305 ml Intake Oral 0 ml IV Total 3000 ml 2650 ml Output Urine Total 2345 ml Laboratory Tests 08/25/17 03:10: White Blood Count 7.6, Red Blood Count 3.49L, Hemoglobin 10.7L, Hematocrit 32.4L , Mean Corpuscular Volume 93, Mean Corpuscular Hemoglobin 30.7, Mean Corpuscular Hemoglobin Concent 33.0, Red Cell Distribution Width 12.4, Platelet Count 217, Mean Platelet Volume 6.2L, Neutrophils (%) (Auto) , Lymphocytes (%) ( Auto) , Monocytes (%) (Auto) , Eosinophils (%) (Auto) , Basophils (%) (Auto) , Sodium Level 136, Potassium Level 3.9, Chloride Level 104, Carbon Dioxide Level 20L, Anion Gap 12, Blood Urea Nitrogen 17, Creatinine 0.9#, Estimat Glomerular Filtration Rate > 60, Glucose Level 86, Uric Acid 8.1H, Calcium Level 7.4#L, Phosphorus Level 4.0, Magnesium Level 1.7L, Total Bilirubin 1.3H, Direct Bilirubin 0.3, Aspartate Amino Transf (AST/SGOT) 554H, Alanine Aminotransferase (ALT/SGPT) 148H, Alkaline Phosphatase 45L, Total Creatine Kinase 65639E, C- Reactive Protein, Quantitative 3.7H, Total Protein 5.9L, Albumin 3.1L, Globulin 2.8, Albumin/Globulin Ratio 1.1 Height (Feet): 5 Height (Inches): 4.00 Weight (Pounds): 147 SYLVIA KELSEY Aug 25, 2017 23:00
[2017-08-26] VITALS: BP 100/57
[2017-08-26] MEDS: Albuterol ud Inhalation HHN SCH ×4 (01:00→20:22)
[2017-08-26 04:00] VITALS: BP 106/58
[2017-08-26 08:00] VITALS: BP 108/67
[2017-08-26 08:05] LABS: ALANINE AMINOTRANSFERASE 1879 U/L (12-78); ALBUMIN/GLOBULIN RATIO 1.1 (1.0-2.7); ANION GAP 9 mmol/L (5-15); ASPARTATE AMINO TRANSFERASE 2638 U/L (15-37); CALCIUM 8.2 MG/DL (8.5-10.1); CARBON DIOXIDE 29 MMOL/L (21-32); CHLORIDE 99 MMOL/L (98-107); CREATININE 0.7 MG/DL (0.55-1.30); GLOMERULAR FILTRATION RATE > 60 mL/min (>60); POTASSIUM 3.5 MMOL/L (3.5-5.1); SODIUM 137 MMOL/L (136-145); TOTAL PROTEIN 6.4 G/DL (6.4-8.2)
--- NOTE | 2017-08-26 08:15 | History and Physical Report ---
DATE OF ADMISSION: 08/24/2017 HISTORY OF PRESENT ILLNESS: The patient is admitted for altered mental status and overdose. The patient history is obtained by the partner at the bedside. According to the patient, he overdosed on methamphetamine as well as bath salts. The patient has malignant hyperthermia with temperature of 108 degrees initially and tachycardia of 160. Cooling measures were done. The patient's temperature went down and heart rate went down and the patient is admitted to the ICU. The patient does respond to noxious stimuli and opens eyes. He is initially admitted to ICU. PAST MEDICAL HISTORY: As per the partner, the patient has hernia, history of lupus, history of hepatitis C, and drug abuse. PAST SURGICAL HISTORY: Hernia repair. MEDICATIONS: The patient does not take anything routine. ALLERGIES: No known allergies. SOCIAL HISTORY: The patient has history of drug abuse, history of smoking. The patient is homosexual. REVIEW OF SYSTEMS: Unable to obtain. PHYSICAL EXAMINATION: VITAL SIGNS: Temperature is 98.9 degrees, pulse is 100, and blood pressure 108/64. HEENT: PERRLA. NECK: Supple. No lymphadenopathy. CHEST: Clear to auscultation. CARDIOVASCULAR: Tachycardic. GASTROINTESTINAL: Soft, nontender, and nondistended. No organomegaly. EXTREMITIES: No edema. NEUROLOGIC: Opens eyes to noxious stimuli, very confused and altered. LABORATORY DATA: WBC of 8.2, hemoglobin 12.3, and platelets of 402,000. Sodium 136, potassium 3.9, BUN of 17, creatinine 0.9, and glucose of 86. AST of 554 and ALT of 148. ASSESSMENT AND PLAN: Altered mental status due to overdose of methamphetamine, ICU. I have asked Dr. Conway, , Dr. Becker, Dr. Hills, Dr. Rojas, Dr. Martinez, and Dr. Beasley to see the patient for other causes of altered mental status as well as for elevated LFT treatment as well as to rule out any coronary damage. Keri Vance M.D. DR: Doug JOB#: [id number] CC:
[2017-08-26] MEDS: Metoprolol 25mg tab ORAL SCH ×2 (09:00→20:59)
--- NOTE | 2017-08-26 09:46 | Nephrology Progress Note ---
Assessment/Plan Assessment 1. Polydrug overdose. 2. Malignant hyperthermia. 3. Acute respiratory failure, hypoxic type. 4. Altered mental status. Rhabdo Much improved electrolytes OK breathing easy tachy Plan Hydrate watch lytes Subjective ROS Limited/Unobtainable: No Objective Objective Last 24 Hour Vital Signs Date Time Temp Pulse Resp B/P (MAP) Pulse Ox O2 Delivery O2 Flow Rate FiO2 08/26/17 09:00 110 108/67 08/26/17 08:06 Room Air 2.0 08/26/17 08:06 100 Room Air 2.0 08/26/17 08:06 110 18 100 Room Air 08/26/17 08:00 97.9 85 19 108/67 100 08/26/17 07:52 98 18 99 Room Air 08/26/17 04:00 97.5 73 18 106/58 100 Room Air 2.0 08/26/17 01:39 Room Air 08/26/17 01:39 Room Air 08/26/17 00:00 98.0 80 18 100/57 100 08/25/17 21:29 93 108/69 08/25/17 20:00 97.5 95 20 110/76 98 08/25/17 19:05 111 18 100 Room Air 08/25/17 19:05 100 Room Air 2.0 08/25/17 19:05 Room Air 2.0 08/25/17 18:58 103 18 99 Room Air 08/25/17 16:00 97.6 87 17 104/58 96 08/25/17 13:49 103 18 100 Room Air 08/25/17 13:40 99 18 Room Air 08/25/17 11:40 98.9 100 18 101/64 99 Room Air 08/25/17 11:00 108 18 113/71 98 Room Air 08/25/17 10:58 112 108/88 08/25/17 10:00 113 17 108/55 100 Room Air Intake and Output 08/25/17 08/26/17 19:00 07:00 Intake Total 2725 ml 2010 ml Output Total 1870 ml 700 ml Balance 855 ml 1310 ml Intake Oral 950 ml 360 ml IV Total 1775 ml 1650 ml Output Urine Total 1870 ml 700 ml # Voids 3 103 Laboratory Tests 08/26/17 05:30: Sodium Level 137, Potassium Level 3.5, Chloride Level 99, Carbon Dioxide Level 29, Anion Gap 9, Blood Urea Nitrogen 6L, Creatinine 0.7, Estimat Glomerular Filtration Rate > 60, Glucose Level 92, Calcium Level 8.2L, Total Bilirubin [ Pending], Aspartate Amino Transf (AST/SGOT) 2638H, Alanine Aminotransferase (ALT /SGPT) 1879H, Alkaline Phosphatase 58, Total Creatine Kinase 64428M, Total Protein 6.4, Albumin 3.3L, Globulin 3.1, Albumin/Globulin Ratio 1.1 08/26/17 05:35: Hepatitis A IgM Antibody [Pending], Hepatitis B Surface Antigen [Pending], Hepatitis B Core IgM Antibody [Pending], Hepatitis C Antibody [Pending] Height (Feet): 5 Height (Inches): 4.00 Weight (Pounds): 147 General Appearance: no apparent distress Cardiovascular: tachycardia Abdomen: soft Objective wnl SERGE MACHUCA Aug 26, 2017 09:46
--- NOTE | 2017-08-26 10:06 | Infectious Diseases Prog Note ---
Assessment/Plan Assessment/Plan A; Aspiration pneumonia/pneumonitis Methamphetamine overdose Rhabdomyolysis Hyperthermia resolved Elevation of transaminase P: Continue Rocephin Subjective ROS Limited/Unobtainable: No Constitutional: Reports: no symptoms Respiratory: Reports: dry cough Genitourinary: Reports: dysuria Musculoskeletal: Reports: pain, other - generalized Allergies: Coded Allergies: No Known Allergies (Unverified , 08/24/17) Objective Vital Signs Last 24 Hour Vital Signs Date Time Temp Pulse Resp B/P (MAP) Pulse Ox O2 Delivery O2 Flow Rate FiO2 08/26/17 09:00 110 108/67 08/26/17 08:06 Room Air 2.0 08/26/17 08:06 100 Room Air 2.0 08/26/17 08:06 110 18 100 Room Air 08/26/17 08:00 97.9 85 19 108/67 100 08/26/17 07:52 98 18 99 Room Air 08/26/17 04:00 97.5 73 18 106/58 100 Room Air 2.0 08/26/17 01:39 Room Air 08/26/17 01:39 Room Air 08/26/17 00:00 98.0 80 18 100/57 100 08/25/17 21:29 93 108/69 08/25/17 20:00 97.5 95 20 110/76 98 08/25/17 19:05 111 18 100 Room Air 08/25/17 19:05 100 Room Air 2.0 08/25/17 19:05 Room Air 2.0 08/25/17 18:58 103 18 99 Room Air 08/25/17 16:00 97.6 87 17 104/58 96 08/25/17 13:49 103 18 100 Room Air 08/25/17 13:40 99 18 Room Air 08/25/17 11:40 98.9 100 18 101/64 99 Room Air 08/25/17 11:00 108 18 113/71 98 Room Air 08/25/17 10:58 112 108/88 Height (Feet): 5 Height (Inches): 4.00 Weight (Pounds): 147 General Appearance: no acute distress HEENT: mucous membranes moist Respiratory/Chest: lungs clear Cardiovascular: regular rhythm, tachycardia Abdomen: soft, non tender Extremities: no edema Skin: other - vitiligo Neurologic/Psychiatric: alert, oriented x 3, responsive Microbiology Date/Time Source Procedure Growth Status 08/24/17 14:22 Nasal Nares MRSA Culture - Final NO METHICILLIN RESISTANT STAPH AUREUS... Complete 08/24/17 14:22 Rectum VRE Culture - Final NO VANCOMYCIN RESISTANT ENTEROCOCCUS ... Complete Laboratory Tests Test 08/26/17 05:30 08/26/17 05:35 Sodium Level 137 MMOL/L (136-145) Potassium Level 3.5 MMOL/L (3.5-5.1) Chloride Level 99 MMOL/L (98-107) Carbon Dioxide Level 29 MMOL/L (21-32) Anion Gap 9 mmol/L (5-15) Blood Urea Nitrogen 6 mg/dL (7-18) L Creatinine 0.7 MG/DL (0.55-1.30) Estimat Glomerular Filtration Rate > 60 mL/min (>60) Glucose Level 92 MG/DL (74-106) Uric Acid Pending Calcium Level 8.2 MG/DL (8.5-10.1) L Phosphorus Level Pending Magnesium Level Pending Total Bilirubin Pending Aspartate Amino Transf (AST/SGOT) 2638 U/L (15-37) H Alanine Aminotransferase (ALT/SGPT) 1879 U/L (12-78) H Alkaline Phosphatase 58 U/L (46-116) Total Creatine Kinase 81031 U/L (26-308) H Total Protein 6.4 G/DL (6.4-8.2) Albumin 3.3 G/DL (3.4-5.0) L Globulin 3.1 g/dL Albumin/Globulin Ratio 1.1 (1.0-2.7) Hepatitis A IgM Antibody Pending Hepatitis B Surface Antigen Pending Hepatitis B Core IgM Antibody Pending Hepatitis C Antibody Pending Current Medications Medications (Trade) Dose Ordered Sig/Antony Route PRN Reason Start Time Stop Time Status Last Admin Dose Admin Acetaminophen (Tylenol) 650 mg Q4H PRN RECTAL Mild Pain (Pain Scale 1-3) 08/25/17 12:45 09/23/17 16:44 Albuterol Sulfate (Proventil) 2.5 mg Q6HRT HHN 08/25/17 13:00 08/29/17 16:59 08/26/17 07:52 Ceftriaxone Sodium 1 gm/ Dextrose 55 ml @ 110 mls/hr Q24H IVPB 08/25/17 13:00 09/01/17 12:59 08/25/17 13:19 Dextrose (Dextrose 50%) STAT PRN IV Hypoglycemia 08/25/17 16:45 09/23/17 16:44 Emtricitabine/ Tenofovir (Truvada 200/ 300mg) 1 tab DAILY ORAL 08/25/17 12:00 09/24/17 11:59 08/26/17 09:00 Lorazepam (Ativan 2mg/ml 1ml) 1 mg Q3H PRN IV For Anxiety 08/25/17 13:45 08/31/17 16:44 Metoprolol Tartrate (Lopressor) 25 mg Q12HR ORAL 08/25/17 21:00 09/24/17 20:59 08/26/17 09:00 Ondansetron HCl (Zofran) 4 mg Q6H PRN IVP Nausea & Vomiting 08/25/17 16:45 09/23/17 16:44 08/26/17 06:31 Ranitidine HCl (Zantac) 150 mg TWICE A DAY ORAL 08/25/17 18:00 09/24/17 17:59 08/26/17 09:00 Sodium Chloride 1,000 ml @ 150 mls/hr Q6H40M IVLG 08/25/17 12:15 09/23/17 12:14 08/26/17 09:00 RADHA PETER Aug 26, 2017 10:06
[2017-08-26 10:16] LABS: BILIRUBIN,DIRECT 0.3 MG/DL (0.0-0.3)
[2017-08-26 10:17] LABS: MAGNESIUM 1.8 MG/DL (1.5-2.4); PHOSPHORUS 2.4 MG/DL (2.5-4.9)
--- NOTE | 2017-08-26 11:31 | General Progress Note ---
Assessment/Plan Assessment/Plan Assessment - Drug overdose - Rhabdo - Abnormal LFT - likely false (+) - Nause, diarrhea - likely reactive and transient Recommendations - push po - follow labs - abd ultrasound Subjective Allergies: Coded Allergies: No Known Allergies (Unverified , 08/24/17) Subjective feels OK no abdominal pain tolerating PO Objective Last 24 Hour Vital Signs Date Time Temp Pulse Resp B/P (MAP) Pulse Ox O2 Delivery O2 Flow Rate FiO2 08/26/17 09:00 110 108/67 08/26/17 08:06 Room Air 2.0 08/26/17 08:06 100 Room Air 2.0 21 08/26/17 08:06 110 18 100 Room Air 08/26/17 08:00 97.9 85 19 108/67 100 08/26/17 07:52 98 18 99 Room Air 08/26/17 04:00 97.5 73 18 106/58 100 Room Air 2.0 08/26/17 01:39 Room Air 08/26/17 01:39 Room Air 08/26/17 00:00 98.0 80 18 100/57 100 08/25/17 21:29 93 108/69 08/25/17 20:00 97.5 95 20 110/76 98 08/25/17 19:05 111 18 100 Room Air 08/25/17 19:05 100 Room Air 2.0 08/25/17 19:05 Room Air 2.0 08/25/17 18:58 103 18 99 Room Air 08/25/17 16:00 97.6 87 17 104/58 96 08/25/17 13:49 103 18 100 Room Air 08/25/17 13:40 99 18 Room Air 08/25/17 11:40 98.9 100 18 101/64 99 Room Air Intake and Output 08/25/17 08/26/17 19:00 07:00 Intake Total 2725 ml 2010 ml Output Total 1870 ml 700 ml Balance 855 ml 1310 ml Intake Oral 950 ml 360 ml IV Total 1775 ml 1650 ml Output Urine Total 1870 ml 700 ml # Voids 3 103 Laboratory Tests 08/26/17 05:30: Sodium Level 137, Potassium Level 3.5, Chloride Level 99, Carbon Dioxide Level 29, Anion Gap 9, Blood Urea Nitrogen 6L, Creatinine 0.7, Estimat Glomerular Filtration Rate > 60, Glucose Level 92, Uric Acid 4.1, Calcium Level 8.2L, Phosphorus Level 2.4L, Magnesium Level 1.8, Total Bilirubin 1.2H, Direct Bilirubin 0.3, Aspartate Amino Transf (AST/SGOT) 2638H, Alanine Aminotransferase (ALT/SGPT) 1879H, Alkaline Phosphatase 58, Total Creatine Kinase 06604G, Total Protein 6.4, Albumin 3.3L, Globulin 3.1, Albumin/Globulin Ratio 1.1 08/26/17 05:35: Hepatitis A IgM Antibody [Pending], Hepatitis B Surface Antigen [Pending], Hepatitis B Core IgM Antibody [Pending], Hepatitis C Antibody [Pending] Height (Feet): 5 Height (Inches): 4.00 Weight (Pounds): 147 Objective Thin man NCAT supple CTA RR Soft ND NT no edema non focal SYLVIA KELSEY Aug 26, 2017 11:31
[2017-08-26 12:00] VITALS: BP 127/74
[2017-08-26] MEDS: cefTRIAXone 1 GM in D5W 55 ML IVPB SCH (12:57)
[2017-08-26 16:00] VITALS: BP 102/65
--- NOTE | 2017-08-26 16:07 | Pulmonology Progress Note ---
Assessment/Plan Assessment/Plan 1. Polydrug overdose. 2. Malignant hyperthermia, resolved 3. Acute respiratory failure, hypoxic type, resolved 4. Altered mental status, resolved 5. Pneumonia 6. Lupus? 7. Hepatitis abx f/u CXR Subjective Respiratory: Reports: productive cough, hemoptysis Allergies: Coded Allergies: No Known Allergies (Unverified , 08/24/17) Objective Last 24 Hour Vital Signs Date Time Temp Pulse Resp B/P (MAP) Pulse Ox O2 Delivery O2 Flow Rate FiO2 08/26/17 13:56 85 16 100 Room Air 21 08/26/17 13:49 91 18 98 Room Air 21 08/26/17 12:00 97.7 79 19 127/74 98 08/26/17 09:00 110 108/67 08/26/17 08:06 Room Air 2.0 08/26/17 08:06 100 Room Air 2.0 21 08/26/17 08:06 110 18 100 Room Air 21 08/26/17 08:00 97.9 85 19 108/67 100 08/26/17 07:52 98 18 99 Room Air 21 08/26/17 04:00 97.5 73 18 106/58 100 Room Air 2.0 21 08/26/17 01:39 Room Air 21 08/26/17 01:39 Room Air 08/26/17 00:00 98.0 80 18 100/57 100 08/25/17 21:29 93 108/69 08/25/17 20:00 97.5 95 20 110/76 98 08/25/17 19:05 111 18 100 Room Air 21 08/25/17 19:05 100 Room Air 2.0 08/25/17 19:05 Room Air 2.0 08/25/17 18:58 103 18 99 Room Air 21 Intake and Output 08/25/17 08/26/17 19:00 07:00 Intake Total 2725 ml 2010 ml Output Total 1870 ml 700 ml Balance 855 ml 1310 ml Intake Oral 950 ml 360 ml IV Total 1775 ml 1650 ml Output Urine Total 1870 ml 700 ml # Voids 3 103 General Appearance: no acute distress HEENT: anicteric Respiratory/Chest: lungs clear Cardiovascular: normal rate Microbiology Date/Time Source Procedure Growth Status 08/24/17 14:22 Nasal Nares MRSA Culture - Final NO METHICILLIN RESISTANT STAPH AUREUS... Complete 08/24/17 14:22 Rectum VRE Culture - Final NO VANCOMYCIN RESISTANT ENTEROCOCCUS ... Complete Laboratory Tests 08/26/17 05:30: Sodium Level 137, Potassium Level 3.5, Chloride Level 99, Carbon Dioxide Level 29, Anion Gap 9, Blood Urea Nitrogen 6L, Creatinine 0.7, Estimat Glomerular Filtration Rate > 60, Glucose Level 92, Uric Acid 4.1, Calcium Level 8.2L, Phosphorus Level 2.4L, Magnesium Level 1.8, Total Bilirubin 1.2H, Direct Bilirubin 0.3, Aspartate Amino Transf (AST/SGOT) 2638H, Alanine Aminotransferase (ALT/SGPT) 1879H, Alkaline Phosphatase 58, Total Creatine Kinase 03010W, Total Protein 6.4, Albumin 3.3L, Globulin 3.1, Albumin/Globulin Ratio 1.1 08/26/17 05:35: Hepatitis A IgM Antibody [Pending], Hepatitis B Surface Antigen [Pending], Hepatitis B Core IgM Antibody [Pending], Hepatitis C Antibody [Pending] Current Medications Medications (Trade) Dose Ordered Sig/Antony Route PRN Reason Start Time Stop Time Status Last Admin Dose Admin Acetaminophen (Tylenol) 650 mg Q4H PRN RECTAL Mild Pain (Pain Scale 1-3) 08/25/17 12:45 09/23/17 16:44 Albuterol Sulfate (Proventil) 2.5 mg Q6HRT HHN 08/25/17 13:00 08/29/17 16:59 08/26/17 13:51 Ceftriaxone Sodium 1 gm/ Dextrose 55 ml @ 110 mls/hr Q24H IVPB 08/25/17 13:00 09/01/17 12:59 08/26/17 12:57 Dextrose (Dextrose 50%) STAT PRN IV Hypoglycemia 08/25/17 16:45 09/23/17 16:44 Emtricitabine/ Tenofovir (Truvada 200/ 300mg) 1 tab DAILY ORAL 08/25/17 12:00 09/24/17 11:59 08/26/17 09:00 Lorazepam (Ativan 2mg/ml 1ml) 1 mg Q3H PRN IV For Anxiety 08/25/17 13:45 08/31/17 16:44 Metoprolol Tartrate (Lopressor) 25 mg Q12HR ORAL 08/25/17 21:00 09/24/17 20:59 08/26/17 09:00 Ondansetron HCl (Zofran) 4 mg Q6H PRN IVP Nausea & Vomiting 08/25/17 16:45 09/23/17 16:44 08/26/17 06:31 Ranitidine HCl (Zantac) 150 mg TWICE A DAY ORAL 08/25/17 18:00 09/24/17 17:59 08/26/17 09:00 Sodium Chloride 1,000 ml @ 150 mls/hr Q6H40M IVLG 08/25/17 12:15 09/23/17 12:14 08/26/17 09:00 CELSO CAMEJO Aug 26, 2017 16:07
[2017-08-26] MEDS ORDERED: Tubing IV Secondary IV ONE (16:50)
--- NOTE | 2017-08-26 17:15 | Consultation ---
DATE OF CONSULTATION: 08/25/2017 NOTE: POOR AUDIO QUALITY GASTROENTEROLOGY CONSULTATION CONSULTING PHYSICIAN: Bobbi Carnes M.D. REFERRING PHYSICIAN: Keri Vance M.D. CHIEF COMPLAINT: I was asked to see this patient by Dr. Keri Vance for evaluation of nausea and diarrhea. HISTORY OF PRESENT ILLNESS: The patient is a 26-year-old white man with admission for overdose or reaction. The patient was taking amphetamines and bath salts and he developed hypothermia and was admitted to the medical intensive care unit with a temperature of 107. He is now improved and he is out of ICU. He had developed some degree of renal failure and rhabdomyolysis. He did complain of some nausea, vomiting, and today he has diarrhea. PAST MEDICAL HISTORY: History of vitiligo. MEDICATIONS: See chart list for details. ALLERGIES: None. FAMILY HISTORY: Noncontributory. SOCIAL HISTORY: The patient lives in an apartment. He is a smoker. He uses amphetamine and drinks occasionally. REVIEW OF SYSTEMS: Otherwise negative. PHYSICAL EXAMINATION: GENERAL: The patient is a pleasant thin white man. HEENT: Normocephalic and atraumatic. NECK: Supple. CHEST: Clear to auscultation. CARDIOVASCULAR: Revealed regular rate. ABDOMEN: Soft. EXTREMITIES: Revealed no edema. ASSESSMENT: This patient presented with acute illness in response to drug overdose and he is rapidly improving. His nausea and diarrhea may be reactive to the overdose and therefore he should be followed conservatively. If his diarrhea continues, further w/u will be done, if needed a stool culture should be done if the diarrhea does not resolve soon. In addition, he had some abnormal liver test of unclear etiology. I will check hepatitis serologies , given drug abuse history and also his imaging studies of the liver should be done to rule out any masses. RECOMMENDATIONS: Per above discussion and per orders written in the chart. Thank you for asking me to participate in the care of this patient. Bobbi Carnes M.D. DR: DESTINY JOB#: [id number] CC: [id number]
--- NOTE | 2017-08-26 17:48 | General Progress Note ---
Assessment/Plan Assessment/Plan ASSESSMENT AND RECOMMENDATIONS: 1. Anemia secondary to chronic disease, likely secondary to polysubstance abuse as well. Continue to closely monitor. Ferritin level is wnl. 2. 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 Resolved. 3. Polysubstance abuse history in the past with altered mental status. Has been seen by social work lecturer 4. Lactic acidosis. Resolved. 5. Respiratory failure, hypoxic. Resolved. Subjective Hematologic/Lymphatic: Reports: anemia Allergies: Coded Allergies: No Known Allergies (Unverified , 08/24/17) All Systems: reviewed and negative except above Subjective doing better Objective Last 24 Hour Vital Signs Date Time Temp Pulse Resp B/P (MAP) Pulse Ox O2 Delivery O2 Flow Rate FiO2 08/26/17 16:00 97.4 72 20 102/65 100 08/26/17 13:56 85 16 100 Room Air 21 08/26/17 13:49 91 18 98 Room Air 21 08/26/17 12:00 97.7 79 19 127/74 98 08/26/17 09:00 110 108/67 08/26/17 08:06 Room Air 2.0 08/26/17 08:06 100 Room Air 2.0 08/26/17 08:06 110 18 100 Room Air 08/26/17 08:00 97.9 85 19 108/67 100 08/26/17 07:52 98 18 99 Room Air 21 08/26/17 04:00 97.5 73 18 106/58 100 Room Air 2.0 08/26/17 01:39 Room Air 08/26/17 01:39 Room Air 08/26/17 00:00 98.0 80 18 100/57 100 08/25/17 21:29 93 108/69 08/25/17 20:00 97.5 95 20 110/76 98 08/25/17 19:05 111 18 100 Room Air 08/25/17 19:05 100 Room Air 2.0 08/25/17 19:05 Room Air 2.0 08/25/17 18:58 103 18 99 Room Air 21 Intake and Output 08/25/17 08/26/17 19:00 07:00 Intake Total 2725 ml 2010 ml Output Total 1870 ml 700 ml Balance 855 ml 1310 ml Intake Oral 950 ml 360 ml IV Total 1775 ml 1650 ml Output Urine Total 1870 ml 700 ml # Voids 3 103 Laboratory Tests 08/26/17 05:30: Sodium Level 137, Potassium Level 3.5, Chloride Level 99, Carbon Dioxide Level 29, Anion Gap 9, Blood Urea Nitrogen 6L, Creatinine 0.7, Estimat Glomerular Filtration Rate > 60, Glucose Level 92, Uric Acid 4.1, Calcium Level 8.2L, Phosphorus Level 2.4L, Magnesium Level 1.8, Total Bilirubin 1.2H, Direct Bilirubin 0.3, Aspartate Amino Transf (AST/SGOT) 2638H, Alanine Aminotransferase (ALT/SGPT) 1879H, Alkaline Phosphatase 58, Total Creatine Kinase 93848L, Total Protein 6.4, Albumin 3.3L, Globulin 3.1, Albumin/Globulin Ratio 1.1 08/26/17 05:35: Hepatitis A IgM Antibody [Pending], Hepatitis B Surface Antigen [Pending], Hepatitis B Core IgM Antibody [Pending], Hepatitis C Antibody [Pending] Height (Feet): 5 Height (Inches): 4.00 Weight (Pounds): 147 General Appearance: no apparent distress EENT: normal ENT inspection Neck: normal alignment Cardiovascular: normal peripheral pulses Extremities: non-tender Neurologic: restaurant busser II-XII grossly normal Ottoniel Martinez Aug 26, 2017 17:48
[2017-08-26 20:00] VITALS: BP 96/56
--- NOTE | 2017-08-26 21:05 | General Progress Note ---
Assessment/Plan Problem List: (1) Drug overdose ICD Codes: T50.901A - Poisoning by unspecified drugs, medicaments and biological substances, accidental (unintentional), initial encounter SNOMED: 79455889 Qualifiers: Qualified Codes: T50.904A - Poisoning by unspecified drugs, medicaments and biological substances, undetermined, initial encounter (2) Drug abuse ICD Codes: F19.10 - Other psychoactive substance abuse, uncomplicated SNOMED: 80003385 (3) Malignant hyperthemia ICD Codes: T88.3XXA - Malignant hyperthermia due to anesthesia, initial encounter SNOMED: 955280033 Qualifiers: Qualified Codes: T88.3XXA - Malignant hyperthermia due to anesthesia, initial encounter (4) Malignant hyperpyrexia ICD Codes: T88.3XXA - Malignant hyperthermia due to anesthesia, initial encounter SNOMED: 753828667 Qualifiers: Qualified Codes: T88.3XXA - Malignant hyperthermia due to anesthesia, initial encounter Status: progressing Assessment/Plan amphtemine o/d more alert for pain ordered tylenol depression treatment per dr florence Subjective ROS Limited/Unobtainable: Yes Constitutional: Reports: no symptoms Allergies: Coded Allergies: No Known Allergies (Unverified , 08/24/17) Objective Last 24 Hour Vital Signs Date Time Temp Pulse Resp B/P (MAP) Pulse Ox O2 Delivery O2 Flow Rate FiO2 08/26/17 20:59 71 96/56 08/26/17 20:30 89 16 100 Room Air 08/26/17 20:23 99 Room Air 2.0 08/26/17 20:23 Room Air 2.0 08/26/17 20:22 88 18 99 Room Air 08/26/17 16:00 97.4 72 20 102/65 100 08/26/17 13:56 85 16 100 Room Air 08/26/17 13:49 91 18 98 Room Air 08/26/17 12:00 97.7 79 19 127/74 98 08/26/17 09:00 110 108/67 08/26/17 08:06 Room Air 2.0 08/26/17 08:06 100 Room Air 2.0 08/26/17 08:06 110 18 100 Room Air 08/26/17 08:00 97.9 85 19 108/67 100 08/26/17 07:52 98 18 99 Room Air 21 08/26/17 04:00 97.5 73 18 106/58 100 Room Air 2.0 21 08/26/17 01:39 Room Air 21 08/26/17 01:39 Room Air 08/26/17 00:00 98.0 80 18 100/57 100 08/25/17 21:29 93 108/69 Intake and Output 08/25/17 08/26/17 19:00 07:00 Intake Total 2725 ml 2010 ml Output Total 1870 ml 700 ml Balance 855 ml 1310 ml Intake Oral 950 ml 360 ml IV Total 1775 ml 1650 ml Output Urine Total 1870 ml 700 ml # Voids 3 103 Laboratory Tests 08/26/17 05:30: Sodium Level 137, Potassium Level 3.5, Chloride Level 99, Carbon Dioxide Level 29, Anion Gap 9, Blood Urea Nitrogen 6L, Creatinine 0.7, Estimat Glomerular Filtration Rate > 60, Glucose Level 92, Uric Acid 4.1, Calcium Level 8.2L, Phosphorus Level 2.4L, Magnesium Level 1.8, Total Bilirubin 1.2H, Direct Bilirubin 0.3, Aspartate Amino Transf (AST/SGOT) 2638H, Alanine Aminotransferase (ALT/SGPT) 1879H, Alkaline Phosphatase 58, Total Creatine Kinase 92610S, Total Protein 6.4, Albumin 3.3L, Globulin 3.1, Albumin/Globulin Ratio 1.1 08/26/17 05:35: Hepatitis A IgM Antibody [Pending], Hepatitis B Surface Antigen [Pending], Hepatitis B Core IgM Antibody [Pending], Hepatitis C Antibody [Pending] Height (Feet): 5 Height (Inches): 4.00 Weight (Pounds): 147 Krei Vance MD Aug 26, 2017 21:05
[2017-08-27] MEDS: Albuterol ud Inhalation HHN SCH ×4 (01:58→19:56)
[2017-08-27 04:00] VITALS: BP 107/61
[2017-08-27 06:56] LABS: BASOPHILS % (AUTO) 1.1 % (0.0-2.0); EOSINOPHILS % (AUTO) 1.4 % (0.0-3.0); LYMPHOCYTES % (AUTO) 50.7 % (20.0-45.0); MEAN CORPUSCULAR HEMOGLOBIN 30.8 PG (27.0-31.0); MEAN CORPUSCULAR VOLUME 94 FL (80-99); MEAN PLATELET VOLUME 6.6 FL (6.5-10.1); MONOCYTES % (AUTO) 12.4 % (1.0-10.0); NEUTROPHILS % (AUTO) 34.5 % (45.0-75.0); PLATELET COUNT 193 K/UL (150-450); RED BLOOD COUNT 3.82 M/UL (4.70-6.10); RED CELL DISTRIBUTION WIDTH 12.8 % (11.6-14.8); WHITE BLOOD COUNT 4.4 K/UL (4.8-10.8)
[2017-08-27 07:37] LABS: ALANINE AMINOTRANSFERASE 1825 U/L (12-78); ANION GAP 5 mmol/L (5-15); ASPARTATE AMINO TRANSFERASE 1814 U/L (15-37); CALCIUM 7.3 MG/DL (8.5-10.1); CARBON DIOXIDE 29 MMOL/L (21-32); CHLORIDE 105 MMOL/L (98-107); CHOLESTEROL 111 MG/DL (< 200); CHOLESTEROL/HDL RATIO 5.6 (3.3-4.4); CREATININE 0.7 MG/DL (0.55-1.30); GLOMERULAR FILTRATION RATE > 60 mL/min (>60); MAGNESIUM 1.7 MG/DL (1.8-2.4); PHOSPHORUS 3.7 MG/DL (2.5-4.9); POTASSIUM 3.7 MMOL/L (3.5-5.1); SODIUM 139 MMOL/L (136-145); THYROID STIMULATING HORMONE 2.399 uiU/mL (0.358-3.740); TOTAL PROTEIN 6.4 G/DL (6.4-8.2); URIC ACID 3.7 MG/DL (2.6-7.2)
[2017-08-27 08:00] VITALS: BP 124/68
[2017-08-27] MEDS: Metoprolol 25mg tab ORAL SCH ×2 (08:41→20:54)
--- NOTE | 2017-08-27 09:44 | Pulmonology Progress Note ---
Assessment/Plan Assessment/Plan 1. Polydrug overdose. 2. Malignant hyperthermia, resolved 3. Acute respiratory failure, hypoxic type, resolved 4. Altered mental status, resolved 5. Pneumonia 6. Lupus 7. Hepatitis 8. Vitiligo abx f/u CXR pending consider rheum consult LFT, CPK still high Subjective Respiratory: Reports: productive cough Gastrointestinal/Abdominal: Reports: nausea, vomiting Allergies: Coded Allergies: No Known Allergies (Unverified , 08/24/17) Objective Last 24 Hour Vital Signs Date Time Temp Pulse Resp B/P (MAP) Pulse Ox O2 Delivery O2 Flow Rate FiO2 08/27/17 08:41 69 124/68 08/27/17 08:00 98.8 69 19 124/68 100 08/27/17 07:23 74 16 100 Room Air 08/27/17 07:13 71 16 Room Air 08/27/17 07:12 71 16 100 Room Air 21 08/27/17 07:11 100 Room Air 08/27/17 07:11 Room Air 08/27/17 04:00 97.9 67 16 107/61 99 Room Air 08/27/17 02:04 91 18 100 Room Air 08/27/17 01:58 84 18 98 Room Air 21 08/26/17 20:59 71 96/56 08/26/17 20:30 89 16 100 Room Air 21 08/26/17 20:23 99 Room Air 2.0 08/26/17 20:23 Room Air 2.0 21 08/26/17 20:22 88 18 99 Room Air 21 08/26/17 20:00 98.5 71 18 96/56 96 Room Air 08/26/17 16:00 97.4 72 20 102/65 100 08/26/17 13:56 85 16 100 Room Air 08/26/17 13:49 91 18 98 Room Air 08/26/17 12:00 97.7 79 19 127/74 98 Intake and Output 08/26/17 08/27/17 19:00 07:00 Intake Total 480 ml 2340 ml Output Total 750 ml Balance -270 ml 2340 ml Intake Oral 480 ml 540 ml IV Total 1800 ml Output Urine Total 750 ml # Voids 8 3 General Appearance: no acute distress HEENT: atraumatic, anicteric Respiratory/Chest: lungs clear Cardiovascular: normal rate Microbiology Date/Time Source Procedure Growth Status 08/24/17 14:22 Nasal Nares MRSA Culture - Final NO METHICILLIN RESISTANT STAPH AUREUS... Complete 08/24/17 14:22 Rectum VRE Culture - Final NO VANCOMYCIN RESISTANT ENTEROCOCCUS ... Complete Laboratory Tests 08/27/17 05:10: White Blood Count 4.4L, Red Blood Count 3.82L, Hemoglobin 11.8L, Hematocrit 35.7L, Mean Corpuscular Volume 94, Mean Corpuscular Hemoglobin 30.8, Mean Corpuscular Hemoglobin Concent 33.0, Red Cell Distribution Width 12.8, Platelet Count 193, Mean Platelet Volume 6.6, Neutrophils (%) (Auto) 34.5L, Lymphocytes ( %) (Auto) 50.7H, Monocytes (%) (Auto) 12.4H, Eosinophils (%) (Auto) 1.4, Basophils (%) (Auto) 1.1 08/27/17 05:20: Sodium Level 139, Potassium Level 3.7, Chloride Level 105, Carbon Dioxide Level 29, Anion Gap 5, Blood Urea Nitrogen 5L, Creatinine 0.7, Estimat Glomerular Filtration Rate > 60, Glucose Level 102, Uric Acid 3.7, Calcium Level 7.3L, Phosphorus Level 3.7, Magnesium Level 1.7L, Total Bilirubin 0.9, Aspartate Amino Transf (AST/SGOT) 1814H, Alanine Aminotransferase (ALT/SGPT) 1825H, Alkaline Phosphatase 61, Total Creatine Kinase 39512M, Total Protein 6.4, Albumin 3.2L, Globulin 3.2, Albumin/Globulin Ratio 1.0, Triglycerides Level 121 , Cholesterol Level 111, LDL Cholesterol 62, HDL Cholesterol 20L, Cholesterol/ HDL Ratio 5.6H, Thyroid Stimulating Hormone (TSH) 2.399 Current Medications Medications (Trade) Dose Ordered Sig/Antony Route PRN Reason Start Time Stop Time Status Last Admin Dose Admin Acetaminophen (Tylenol) 650 mg Q4H PRN ORAL Mild Pain/Temp > 100.5 08/26/17 23:30 09/25/17 23:29 Albuterol Sulfate (Proventil) 2.5 mg Q6HRT HHN 08/25/17 13:00 08/29/17 16:59 08/27/17 07:08 Ceftriaxone Sodium 1 gm/ Dextrose 55 ml @ 110 mls/hr Q24H IVPB 08/25/17 13:00 09/01/17 12:59 08/26/17 12:57 Dextrose (Dextrose 50%) STAT PRN IV Hypoglycemia 08/25/17 16:45 09/23/17 16:44 Emtricitabine/ Tenofovir (Truvada 200/ 300mg) 1 tab DAILY ORAL 08/25/17 12:00 09/24/17 11:59 08/27/17 08:40 Lorazepam (Ativan 2mg/ml 1ml) 1 mg Q3H PRN IV For Anxiety 08/25/17 13:45 08/31/17 16:44 Metoprolol Tartrate (Lopressor) 25 mg Q12HR ORAL 08/25/17 21:00 09/24/17 20:59 08/27/17 08:41 Ondansetron HCl (Zofran) 4 mg Q6H PRN IVP Nausea & Vomiting 08/25/17 16:45 09/23/17 16:44 08/27/17 08:41 Ranitidine HCl (Zantac) 150 mg TWICE A DAY ORAL 08/25/17 18:00 09/24/17 17:59 08/27/17 08:40 Sodium Chloride 1,000 ml @ 150 mls/hr Q6H40M IVLG 08/25/17 12:15 09/23/17 12:14 08/27/17 04:22 CELSO CAMEJO Aug 27, 2017 09:44
[2017-08-27] MEDS: LORazepam Inj 2mg/ml 1ml IV PRN ×2 (10:12→20:54)
[2017-08-27 12:00] VITALS: BP 118/76
[2017-08-27] MEDS: cefTRIAXone 1 GM in D5W 55 ML IVPB SCH (13:15)
--- NOTE | 2017-08-27 13:30 | General Progress Note ---
Assessment/Plan Assessment/Plan Assessment - Drug overdose - Rhabdo - Abnormal LFT - likely false (+) - Nausea, diarrhea - likely reactive and transient Recommendations - change H2B to PPI - push po - follow labs - abd ultrasound Subjective Allergies: Coded Allergies: No Known Allergies (Unverified , 08/24/17) Subjective some abd cramps some loose BM some N/V Objective Last 24 Hour Vital Signs Date Time Temp Pulse Resp B/P (MAP) Pulse Ox O2 Delivery O2 Flow Rate FiO2 08/27/17 08:41 69 124/68 08/27/17 08:00 98.8 69 19 124/68 100 08/27/17 07:23 74 16 100 Room Air 21 08/27/17 07:13 71 16 Room Air 21 08/27/17 07:12 71 16 100 Room Air 21 08/27/17 07:11 100 Room Air 21 08/27/17 07:11 Room Air 21 08/27/17 04:00 97.9 67 16 107/61 99 Room Air 08/27/17 02:04 91 18 100 Room Air 21 08/27/17 01:58 84 18 98 Room Air 21 08/26/17 20:59 71 96/56 08/26/17 20:30 89 16 100 Room Air 21 08/26/17 20:23 99 Room Air 2.0 08/26/17 20:23 Room Air 2.0 21 08/26/17 20:22 88 18 99 Room Air 21 08/26/17 20:00 98.5 71 18 96/56 96 Room Air 08/26/17 16:00 97.4 72 20 102/65 100 08/26/17 13:56 85 16 100 Room Air 08/26/17 13:49 91 18 98 Room Air 21 Intake and Output 08/26/17 08/27/17 19:00 07:00 Intake Total 480 ml 2340 ml Output Total 750 ml Balance -270 ml 2340 ml Intake Oral 480 ml 540 ml IV Total 1800 ml Output Urine Total 750 ml # Voids 8 3 Laboratory Tests 08/27/17 05:10: White Blood Count 4.4L, Red Blood Count 3.82L, Hemoglobin 11.8L, Hematocrit 35.7L, Mean Corpuscular Volume 94, Mean Corpuscular Hemoglobin 30.8, Mean Corpuscular Hemoglobin Concent 33.0, Red Cell Distribution Width 12.8, Platelet Count 193, Mean Platelet Volume 6.6, Neutrophils (%) (Auto) 34.5L, Lymphocytes ( %) (Auto) 50.7H, Monocytes (%) (Auto) 12.4H, Eosinophils (%) (Auto) 1.4, Basophils (%) (Auto) 1.1 08/27/17 05:20: Sodium Level 139, Potassium Level 3.7, Chloride Level 105, Carbon Dioxide Level 29, Anion Gap 5, Blood Urea Nitrogen 5L, Creatinine 0.7, Estimat Glomerular Filtration Rate > 60, Glucose Level 102, Uric Acid 3.7, Calcium Level 7.3L, Phosphorus Level 3.7, Magnesium Level 1.7L, Total Bilirubin 0.9, Aspartate Amino Transf (AST/SGOT) 1814H, Alanine Aminotransferase (ALT/SGPT) 1825H, Alkaline Phosphatase 61, Total Creatine Kinase 38511U, Total Protein 6.4, Albumin 3.2L, Globulin 3.2, Albumin/Globulin Ratio 1.0, Triglycerides Level 121 , Cholesterol Level 111, LDL Cholesterol 62, HDL Cholesterol 20L, Cholesterol/ HDL Ratio 5.6H, Thyroid Stimulating Hormone (TSH) 2.399 Height (Feet): 5 Height (Inches): 4.00 Weight (Pounds): 147 Objective Thin man NCAT supple CTA RR Soft ND NT no edema non focal SYLVIA KELSEY Aug 27, 2017 13:30
--- NOTE | 2017-08-27 14:15 | Nephrology Progress Note ---
Assessment/Plan Problem List: (1) Drug overdose (2) Malignant hyperthemia (3) Rhabdomyolysis Assessment 1. Polydrug overdose. 2. Malignant hyperthermia. 3. Acute respiratory failure, hypoxic type. 4. Altered mental status. Rhabdo Much improved electrolytes OK breathing easy tachy Plan Hydrate- watch lytes- monitor CK Subjective ROS Limited/Unobtainable: No Constitutional: Reports: malaise Objective Objective Last 24 Hour Vital Signs Date Time Temp Pulse Resp B/P (MAP) Pulse Ox O2 Delivery O2 Flow Rate FiO2 08/27/17 13:30 63 18 100 Room Air 21 08/27/17 13:23 62 18 100 Room Air 08/27/17 08:41 69 124/68 08/27/17 08:00 98.8 69 19 124/68 100 08/27/17 07:23 74 16 100 Room Air 08/27/17 07:13 71 16 Room Air 08/27/17 07:12 71 16 100 Room Air 08/27/17 07:11 100 Room Air 08/27/17 07:11 Room Air 08/27/17 04:00 97.9 67 16 107/61 99 Room Air 08/27/17 02:04 91 18 100 Room Air 08/27/17 01:58 84 18 98 Room Air 08/26/17 20:59 71 96/56 08/26/17 20:30 89 16 100 Room Air 08/26/17 20:23 99 Room Air 2.0 08/26/17 20:23 Room Air 2.0 08/26/17 20:22 88 18 99 Room Air 08/26/17 20:00 98.5 71 18 96/56 96 Room Air 08/26/17 16:00 97.4 72 20 102/65 100 Intake and Output 08/26/17 08/27/17 19:00 07:00 Intake Total 480 ml 2340 ml Output Total 750 ml Balance -270 ml 2340 ml Intake Oral 480 ml 540 ml IV Total 1800 ml Output Urine Total 750 ml # Voids 8 3 Laboratory Tests 08/27/17 05:10: White Blood Count 4.4L, Red Blood Count 3.82L, Hemoglobin 11.8L, Hematocrit 35.7L, Mean Corpuscular Volume 94, Mean Corpuscular Hemoglobin 30.8, Mean Corpuscular Hemoglobin Concent 33.0, Red Cell Distribution Width 12.8, Platelet Count 193, Mean Platelet Volume 6.6, Neutrophils (%) (Auto) 34.5L, Lymphocytes ( %) (Auto) 50.7H, Monocytes (%) (Auto) 12.4H, Eosinophils (%) (Auto) 1.4, Basophils (%) (Auto) 1.1 08/27/17 05:20: Sodium Level 139, Potassium Level 3.7, Chloride Level 105, Carbon Dioxide Level 29, Anion Gap 5, Blood Urea Nitrogen 5L, Creatinine 0.7, Estimat Glomerular Filtration Rate > 60, Glucose Level 102, Uric Acid 3.7, Calcium Level 7.3L, Phosphorus Level 3.7, Magnesium Level 1.7L, Total Bilirubin 0.9, Aspartate Amino Transf (AST/SGOT) 1814H, Alanine Aminotransferase (ALT/SGPT) 1825H, Alkaline Phosphatase 61, Total Creatine Kinase 91118I, Total Protein 6.4, Albumin 3.2L, Globulin 3.2, Albumin/Globulin Ratio 1.0, Triglycerides Level 121 , Cholesterol Level 111, LDL Cholesterol 62, HDL Cholesterol 20L, Cholesterol/ HDL Ratio 5.6H, Thyroid Stimulating Hormone (TSH) 2.399 Height (Feet): 5 Height (Inches): 4.00 Weight (Pounds): 147 General Appearance: no apparent distress Objective SERGE Kim Aug 27, 2017 14:15
[2017-08-27 16:00] VITALS: BP 131/74
--- NOTE | 2017-08-27 16:10 | Infectious Diseases Prog Note ---
Assessment/Plan Assessment/Plan A; Aspiration pneumonia/pneumonitis Methamphetamine overdose Rhabdomyolysis Hyperthermia resolved Elevation of transaminase P: Continue Rocephin x 1 day Subjective ROS Limited/Unobtainable: No Constitutional: Reports: no symptoms HEENT: Reports: no symptoms Respiratory: Reports: no symptoms Gastrointestinal/Abdominal: Reports: no symptoms Genitourinary: Reports: no symptoms Musculoskeletal: Reports: pain, other - in legs Allergies: Coded Allergies: No Known Allergies (Unverified , 08/24/17) Objective Vital Signs Last 24 Hour Vital Signs Date Time Temp Pulse Resp B/P (MAP) Pulse Ox O2 Delivery O2 Flow Rate FiO2 08/27/17 13:30 63 18 100 Room Air 21 08/27/17 13:23 62 18 100 Room Air 08/27/17 12:00 98.1 67 20 118/76 99 Room Air 08/27/17 08:41 69 124/68 08/27/17 08:00 98.8 69 19 124/68 100 08/27/17 07:23 74 16 100 Room Air 08/27/17 07:13 71 16 Room Air 08/27/17 07:12 71 16 100 Room Air 21 08/27/17 07:11 100 Room Air 08/27/17 07:11 Room Air 21 08/27/17 04:00 97.9 67 16 107/61 99 Room Air 08/27/17 02:04 91 18 100 Room Air 08/27/17 01:58 84 18 98 Room Air 08/26/17 20:59 71 96/56 08/26/17 20:30 89 16 100 Room Air 08/26/17 20:23 99 Room Air 2.0 08/26/17 20:23 Room Air 2.0 08/26/17 20:22 88 18 99 Room Air 08/26/17 20:00 98.5 71 18 96/56 96 Room Air Height (Feet): 5 Height (Inches): 4.00 Weight (Pounds): 147 General Appearance: no acute distress HEENT: atraumatic, mucous membranes moist Respiratory/Chest: lungs clear Cardiovascular: normal rate Abdomen: soft, non tender Extremities: no edema Neurologic/Psychiatric: alert, oriented x 3, responsive Laboratory Tests Test 08/27/17 05:10 08/27/17 05:20 White Blood Count 4.4 K/UL (4.8-10.8) L Red Blood Count 3.82 M/UL (4.70-6.10) L Hemoglobin 11.8 G/DL (14.2-18.0) L Hematocrit 35.7 % (42.0-52.0) L Mean Corpuscular Volume 94 FL (80-99) Mean Corpuscular Hemoglobin 30.8 PG (27.0-31.0) Mean Corpuscular Hemoglobin Concent 33.0 G/DL (32.0-36.0) Red Cell Distribution Width 12.8 % (11.6-14.8) Platelet Count 193 K/UL (150-450) Mean Platelet Volume 6.6 FL (6.5-10.1) Neutrophils (%) (Auto) 34.5 % (45.0-75.0) L Lymphocytes (%) (Auto) 50.7 % (20.0-45.0) H Monocytes (%) (Auto) 12.4 % (1.0-10.0) H Eosinophils (%) (Auto) 1.4 % (0.0-3.0) Basophils (%) (Auto) 1.1 % (0.0-2.0) Sodium Level 139 MMOL/L (136-145) Potassium Level 3.7 MMOL/L (3.5-5.1) Chloride Level 105 MMOL/L (98-107) Carbon Dioxide Level 29 MMOL/L (21-32) Anion Gap 5 mmol/L (5-15) Blood Urea Nitrogen 5 mg/dL (7-18) L Creatinine 0.7 MG/DL (0.55-1.30) Estimat Glomerular Filtration Rate > 60 mL/min (>60) Glucose Level 102 MG/DL (74-106) Uric Acid 3.7 MG/DL (2.6-7.2) Calcium Level 7.3 MG/DL (8.5-10.1) L Phosphorus Level 3.7 MG/DL (2.5-4.9) Magnesium Level 1.7 MG/DL (1.8-2.4) L Total Bilirubin 0.9 MG/DL (0.2-1.0) Aspartate Amino Transf (AST/SGOT) 1814 U/L (15-37) H Alanine Aminotransferase (ALT/SGPT) 1825 U/L (12-78) H Alkaline Phosphatase 61 U/L (46-116) Total Creatine Kinase 84876 U/L (26-308) H Total Protein 6.4 G/DL (6.4-8.2) Albumin 3.2 G/DL (3.4-5.0) L Globulin 3.2 g/dL Albumin/Globulin Ratio 1.0 (1.0-2.7) Triglycerides Level 121 MG/DL (30-150) Cholesterol Level 111 MG/DL (< 200) LDL Cholesterol 62 mg/dL (<100) HDL Cholesterol 20 MG/DL (40-60) L Cholesterol/HDL Ratio 5.6 (3.3-4.4) H Thyroid Stimulating Hormone (TSH) 2.399 uiU/mL (0.358-3.740) Current Medications Medications (Trade) Dose Ordered Sig/Antony Route PRN Reason Start Time Stop Time Status Last Admin Dose Admin Acetaminophen (Tylenol) 650 mg Q4H PRN ORAL Mild Pain/Temp > 100.5 08/26/17 23:30 09/25/17 23:29 Albuterol Sulfate (Proventil) 2.5 mg Q6HRT HHN 08/25/17 13:00 08/29/17 16:59 08/27/17 13:22 Ceftriaxone Sodium 1 gm/ Dextrose 55 ml @ 110 mls/hr Q24H IVPB 08/25/17 13:00 09/01/17 12:59 08/27/17 13:15 Dextrose (Dextrose 50%) STAT PRN IV Hypoglycemia 08/25/17 16:45 09/23/17 16:44 Emtricitabine/ Tenofovir (Truvada 200/ 300mg) 1 tab DAILY ORAL 08/25/17 12:00 09/24/17 11:59 08/27/17 08:40 Lorazepam (Ativan 2mg/ml 1ml) 1 mg Q3H PRN IV For Anxiety 08/25/17 13:45 08/31/17 16:44 08/27/17 10:12 Magnesium Sulfate 100 ml @ 100 mls/hr Q1H IVPB 08/27/17 14:30 08/27/17 16:29 08/27/17 15:32 Metoprolol Tartrate (Lopressor) 25 mg Q12HR ORAL 08/25/17 21:00 09/24/17 20:59 12/22/17 08:41 Ondansetron HCl (Zofran) 4 mg Q6H PRN IVP Nausea & Vomiting 08/25/17 16:45 09/23/17 16:44 08/27/17 08:41 Pantoprazole (Protonix) 40 mg EVERY 12 HOURS ORAL 08/27/17 14:00 09/26/17 13:59 08/27/17 15:32 Sodium Chloride 1,000 ml @ 150 mls/hr Q6H40M IVLG 08/25/17 12:15 09/23/17 12:14 08/27/17 13:16 RADHA PETER Aug 27, 2017 16:10
--- NOTE | 2017-08-27 18:06 | Diagnostic Imaging Report ---
Indication: Shortness of breath Technique: XRAY Chest 2v Comparison: 08/25/2017. There is no focal airspace consolidation, pleural effusion or pneumothorax. Findings: Heart size and mediastinal contours are within normal limits and no acute osseous abnormality is seen. There is interval improved aeration of the left lung compared to the prior exam. No definite consolidation is seen. There is no pleural effusion or pneumothorax. Impression: Interval improved aeration of the left lung compared to the prior exam. No definite focal consolidation. No pleural effusion or pneumothorax.
[2017-08-27 20:00] VITALS: BP 114/66
--- NOTE | 2017-08-27 20:51 | General Progress Note ---
Assessment/Plan Problem List: (1) Drug overdose ICD Codes: T50.901A - Poisoning by unspecified drugs, medicaments and biological substances, accidental (unintentional), initial encounter SNOMED: 74278339 Qualifiers: Qualified Codes: T50.904A - Poisoning by unspecified drugs, medicaments and biological substances, undetermined, initial encounter (2) Drug abuse ICD Codes: F19.10 - Other psychoactive substance abuse, uncomplicated SNOMED: 07826026 (3) Malignant hyperthemia ICD Codes: T88.3XXA - Malignant hyperthermia due to anesthesia, initial encounter SNOMED: 083081902 Qualifiers: Qualified Codes: T88.3XXA - Malignant hyperthermia due to anesthesia, initial encounter (4) Malignant hyperpyrexia ICD Codes: T88.3XXA - Malignant hyperthermia due to anesthesia, initial encounter SNOMED: 684839268 Qualifiers: Qualified Codes: T88.3XXA - Malignant hyperthermia due to anesthesia, initial encounter Status: progressing Assessment/Plan amphtemine o/d ams is improving afebrile reviewed chart and labs Subjective ROS Limited/Unobtainable: Yes Constitutional: Reports: no symptoms Allergies: Coded Allergies: No Known Allergies (Unverified , 08/24/17) Objective Last 24 Hour Vital Signs Date Time Temp Pulse Resp B/P (MAP) Pulse Ox O2 Delivery O2 Flow Rate FiO2 08/27/17 20:08 87 18 100 Room Air 08/27/17 19:58 78 16 Room Air 08/27/17 19:57 78 16 100 Room Air 08/27/17 16:00 97.0 85 20 131/74 97 Room Air 08/27/17 13:30 63 18 100 Room Air 08/27/17 13:23 62 18 100 Room Air 08/27/17 12:00 98.1 67 20 118/76 99 Room Air 08/27/17 08:41 69 124/68 08/27/17 08:00 98.8 69 19 124/68 100 08/27/17 07:23 74 16 100 Room Air 08/27/17 07:13 71 16 Room Air 08/27/17 07:12 71 16 100 Room Air 08/27/17 07:11 100 Room Air 08/27/17 07:11 Room Air 08/27/17 04:00 97.9 67 16 107/61 99 Room Air 08/27/17 02:04 91 18 100 Room Air 21 08/27/17 01:58 84 18 98 Room Air 21 08/26/17 20:59 71 96/56 Intake and Output 08/26/17 08/27/17 19:00 07:00 Intake Total 480 ml 2340 ml Output Total 750 ml Balance -270 ml 2340 ml Intake Oral 480 ml 540 ml IV Total 1800 ml Output Urine Total 750 ml # Voids 8 3 Laboratory Tests 08/27/17 05:10: White Blood Count 4.4L, Red Blood Count 3.82L, Hemoglobin 11.8L, Hematocrit 35.7L, Mean Corpuscular Volume 94, Mean Corpuscular Hemoglobin 30.8, Mean Corpuscular Hemoglobin Concent 33.0, Red Cell Distribution Width 12.8, Platelet Count 193, Mean Platelet Volume 6.6, Neutrophils (%) (Auto) 34.5L, Lymphocytes ( %) (Auto) 50.7H, Monocytes (%) (Auto) 12.4H, Eosinophils (%) (Auto) 1.4, Basophils (%) (Auto) 1.1 08/27/17 05:20: Sodium Level 139, Potassium Level 3.7, Chloride Level 105, Carbon Dioxide Level 29, Anion Gap 5, Blood Urea Nitrogen 5L, Creatinine 0.7, Estimat Glomerular Filtration Rate > 60, Glucose Level 102, Uric Acid 3.7, Calcium Level 7.3L, Phosphorus Level 3.7, Magnesium Level 1.7L, Total Bilirubin 0.9, Aspartate Amino Transf (AST/SGOT) 1814H, Alanine Aminotransferase (ALT/SGPT) 1825H, Alkaline Phosphatase 61, Total Creatine Kinase 58792X, Total Protein 6.4, Albumin 3.2L, Globulin 3.2, Albumin/Globulin Ratio 1.0, Triglycerides Level 121 , Cholesterol Level 111, LDL Cholesterol 62, HDL Cholesterol 20L, Cholesterol/ HDL Ratio 5.6H, Thyroid Stimulating Hormone (TSH) 2.399 Height (Feet): 5 Height (Inches): 4.00 Weight (Pounds): 147 Cardiovascular: normal rate Respiratory/Chest: lungs clear Abdomen: soft Keri Vance MD Aug 27, 2017 20:51
--- NOTE | 2017-08-27 21:47 | Progress Note ---
DATE: 08/26/2017 SUBJECTIVE: The patient is calm. No behavior issues. Good insight into his drug use. He has issues relationship with his partner and has depression. No suicidal or homicidal ideations. MENTAL STATUS EXAMINATION: The patient is alert and oriented times self, place, and situation he is in. Mood is dysphoric. Affect is constricted. Congruent with mood. Thought process is concrete. Thought content, no suicidal or homicidal ideations. ASSESSMENT: Substance use disorder. PLAN: 1. We will continue current medication. 2. Provide the patient with supportive therapy and reality orientation. 3. We will continue to follow and readjust the medication. Bel Beasley M.D. DR: MARIELA JOB#: [id number] CC:
[2017-08-28] VITALS: BP 105/62
[2017-08-28] MEDS: Albuterol ud Inhalation HHN SCH ×4 (01:00→20:11)
[2017-08-28] MEDS: LORazepam Inj 2mg/ml 1ml IV PRN ×2 (03:32→14:06)
[2017-08-28 04:00] VITALS: BP 108/70
[2017-08-28 08:00] VITALS: BP 115/65
[2017-08-28 08:15] LABS: ALANINE AMINOTRANSFERASE 1386 U/L (12-78); ALBUMIN/GLOBULIN RATIO 0.9 (1.0-2.7); ANION GAP 5 mmol/L (5-15); ASPARTATE AMINO TRANSFERASE 971 U/L (15-37); CALCIUM 7.7 MG/DL (8.5-10.1); CARBON DIOXIDE 30 MMOL/L (21-32); CHLORIDE 106 MMOL/L (98-107); CREATININE 0.7 MG/DL (0.55-1.30); GLOMERULAR FILTRATION RATE > 60 mL/min (>60); MAGNESIUM 1.9 MG/DL (1.8-2.4); PHOSPHORUS 3.7 MG/DL (2.5-4.9); SODIUM 141 MMOL/L (136-145); TOTAL PROTEIN 6.2 G/DL (6.4-8.2); URIC ACID 2.9 MG/DL (2.6-7.2)
--- NOTE | 2017-08-28 08:39 | General Progress Note ---
Assessment/Plan Problem List: (1) Elevated LFTs ICD Codes: R79.89 - Other specified abnormal findings of blood chemistry SNOMED: 359338872, 084583348 (2) Hepatitis C ICD Codes: B19.20 - Unspecified viral hepatitis C without hepatic coma SNOMED: 87366670 (3) Rhabdomyolysis ICD Codes: M62.82 - Rhabdomyolysis SNOMED: 690735105 (4) Drug abuse ICD Codes: F19.10 - Other psychoactive substance abuse, uncomplicated SNOMED: 70931081 Assessment/Plan LFTs improving fu labs needs out patietn fu for hep C treatment Subjective ROS Limited/Unobtainable: Yes Allergies: Coded Allergies: No Known Allergies (Unverified , 08/24/17) Subjective no event Objective Last 24 Hour Vital Signs Date Time Temp Pulse Resp B/P (MAP) Pulse Ox O2 Delivery O2 Flow Rate FiO2 08/28/17 04:00 97.2 62 18 108/70 99 08/28/17 01:12 Room Air 08/28/17 01:11 Room Air 08/28/17 00:00 97.7 68 18 105/62 98 08/27/17 20:54 87 131/74 08/27/17 20:08 87 18 100 Room Air 21 08/27/17 20:00 97.5 77 18 114/66 99 Nasal Cannula 08/27/17 19:58 78 16 Room Air 08/27/17 19:57 78 16 100 Room Air 21 08/27/17 16:00 97.0 85 20 131/74 97 Room Air 08/27/17 13:30 63 18 100 Room Air 21 08/27/17 13:23 62 18 100 Room Air 21 08/27/17 12:00 98.1 67 20 118/76 99 Room Air 08/27/17 08:41 69 124/68 Intake and Output 08/27/17 08/28/17 19:00 07:00 Intake Total 960 ml 2220 ml Output Total 700 ml Balance 960 ml 1520 ml Intake Oral 960 ml 720 ml IV Total 1500 ml Output Urine Total 700 ml # Voids 6 2 # Bowel Movements 2 2 Laboratory Tests 08/28/17 06:10: Sodium Level 141, Potassium Level 4.0, Chloride Level 106, Carbon Dioxide Level 30, Anion Gap 5, Blood Urea Nitrogen 8, Creatinine 0.7, Estimat Glomerular Filtration Rate > 60, Glucose Level 118H, Uric Acid 2.9, Calcium Level 7.7L, Phosphorus Level 3.7, Magnesium Level 1.9, Total Bilirubin 0.8, Gamma Glutamyl Transpeptidase 55, Aspartate Amino Transf (AST/SGOT) 971H, Alanine Aminotransferase (ALT/SGPT) 1386H, Alkaline Phosphatase 60, Total Creatine Kinase 15281W, Total Protein 6.2L, Albumin 3.0L, Globulin 3.2, Albumin/Globulin Ratio 0.9L Height (Feet): 5 Height (Inches): 4.00 Weight (Pounds): 147 General Appearance: no apparent distress EENT: normal ENT inspection Neck: supple Cardiovascular: normal rate Respiratory/Chest: decreased breath sounds Abdomen: normal bowel sounds, non tender, soft Extremities: non-tender KIRILL ANAND Aug 28, 2017 08:39
[2017-08-28] MEDS: Metoprolol 25mg tab ORAL SCH ×2 (09:22→21:57)
--- NOTE | 2017-08-28 09:23 | General Progress Note ---
Assessment/Plan Problem List: (1) Drug overdose ICD Codes: T50.901A - Poisoning by unspecified drugs, medicaments and biological substances, accidental (unintentional), initial encounter SNOMED: 69170192 Qualifiers: Qualified Codes: T50.904A - Poisoning by unspecified drugs, medicaments and biological substances, undetermined, initial encounter (2) Drug abuse ICD Codes: F19.10 - Other psychoactive substance abuse, uncomplicated SNOMED: 80393869 (3) Malignant hyperthemia ICD Codes: T88.3XXA - Malignant hyperthermia due to anesthesia, initial encounter SNOMED: 686679372 Qualifiers: Qualified Codes: T88.3XXA - Malignant hyperthermia due to anesthesia, initial encounter (4) Malignant hyperpyrexia ICD Codes: T88.3XXA - Malignant hyperthermia due to anesthesia, initial encounter SNOMED: 553304326 Qualifiers: Qualified Codes: T88.3XXA - Malignant hyperthermia due to anesthesia, initial encounter Status: progressing Assessment/Plan amphtemine o/d elev lft no palpitation afebrile ams improving lft is still very much elevated treatment per gi Subjective ROS Limited/Unobtainable: Yes Allergies: Coded Allergies: No Known Allergies (Unverified , 08/24/17) Objective Last 24 Hour Vital Signs Date Time Temp Pulse Resp B/P (MAP) Pulse Ox O2 Delivery O2 Flow Rate FiO2 08/28/17 09:11 65 16 100 Room Air 08/28/17 09:03 65 16 98 Room Air 08/28/17 09:03 65 16 Room Air 08/28/17 04:00 97.2 62 18 108/70 99 08/28/17 01:12 Room Air 08/28/17 01:11 Room Air 08/28/17 00:00 97.7 68 18 105/62 98 08/27/17 20:54 87 131/74 08/27/17 20:08 87 18 100 Room Air 08/27/17 20:00 97.5 77 18 114/66 99 Nasal Cannula 08/27/17 19:58 78 16 Room Air 08/27/17 19:57 78 16 100 Room Air 08/27/17 16:00 97.0 85 20 131/74 97 Room Air 08/27/17 13:30 63 18 100 Room Air 08/27/17 13:23 62 18 100 Room Air 21 08/27/17 12:00 98.1 67 20 118/76 99 Room Air Intake and Output 08/27/17 08/28/17 19:00 07:00 Intake Total 960 ml 2220 ml Output Total 700 ml Balance 960 ml 1520 ml Intake Oral 960 ml 720 ml IV Total 1500 ml Output Urine Total 700 ml # Voids 6 2 # Bowel Movements 2 2 Laboratory Tests 08/28/17 06:10: Sodium Level 141, Potassium Level 4.0, Chloride Level 106, Carbon Dioxide Level 30, Anion Gap 5, Blood Urea Nitrogen 8, Creatinine 0.7, Estimat Glomerular Filtration Rate > 60, Glucose Level 118H, Uric Acid 2.9, Calcium Level 7.7L, Phosphorus Level 3.7, Magnesium Level 1.9, Total Bilirubin 0.8, Gamma Glutamyl Transpeptidase 55, Aspartate Amino Transf (AST/SGOT) 971H, Alanine Aminotransferase (ALT/SGPT) 1386H, Alkaline Phosphatase 60, Total Creatine Kinase 92976U, Total Protein 6.2L, Albumin 3.0L, Globulin 3.2, Albumin/Globulin Ratio 0.9L Height (Feet): 5 Height (Inches): 4.00 Weight (Pounds): 147 Keri Vance MD Aug 28, 2017 09:23
--- NOTE | 2017-08-28 11:11 | Infectious Diseases Prog Note ---
Assessment/Plan Assessment/Plan antibiotics : ceftriaxone A 1. pneumonia 2. rhabdomyolysis 3. increased LFT improving 4. methamphetamine use 5. renal failure improving P 1. continue ceftriaxone 2. will follow up cultures Subjective Constitutional: Denies: fever, chills Respiratory: Reports: dry cough - decreased, Denies: shortness of breath Allergies: Coded Allergies: No Known Allergies (Unverified , 08/24/17) Objective Vital Signs Last 24 Hour Vital Signs Date Time Temp Pulse Resp B/P (MAP) Pulse Ox O2 Delivery O2 Flow Rate FiO2 08/28/17 09:22 74 115/65 08/28/17 09:11 65 16 100 Room Air 21 08/28/17 09:03 65 16 98 Room Air 21 08/28/17 09:03 65 16 Room Air 21 08/28/17 04:00 97.2 62 18 108/70 99 08/28/17 01:12 Room Air 08/28/17 01:11 Room Air 21 08/28/17 00:00 97.7 68 18 105/62 98 08/27/17 20:54 87 131/74 08/27/17 20:08 87 18 100 Room Air 21 08/27/17 20:00 97.5 77 18 114/66 99 Nasal Cannula 08/27/17 19:58 78 16 Room Air 21 08/27/17 19:57 78 16 100 Room Air 21 08/27/17 16:00 97.0 85 20 131/74 97 Room Air 08/27/17 13:30 63 18 100 Room Air 21 08/27/17 13:23 62 18 100 Room Air 21 08/27/17 12:00 98.1 67 20 118/76 99 Room Air Height (Feet): 5 Height (Inches): 4.00 Weight (Pounds): 147 Respiratory/Chest: lungs clear Cardiovascular: normal rate, regular rhythm, no gallop/murmur Abdomen: soft, non tender Extremities: no edema Laboratory Tests Test 08/28/17 06:10 Sodium Level 141 MMOL/L (136-145) Potassium Level 4.0 MMOL/L (3.5-5.1) Chloride Level 106 MMOL/L (98-107) Carbon Dioxide Level 30 MMOL/L (21-32) Anion Gap 5 mmol/L (5-15) Blood Urea Nitrogen 8 mg/dL (7-18) Creatinine 0.7 MG/DL (0.55-1.30) Estimat Glomerular Filtration Rate > 60 mL/min (>60) Glucose Level 118 MG/DL (74-106) H Uric Acid 2.9 MG/DL (2.6-7.2) Calcium Level 7.7 MG/DL (8.5-10.1) L Phosphorus Level 3.7 MG/DL (2.5-4.9) Magnesium Level 1.9 MG/DL (1.8-2.4) Total Bilirubin 0.8 MG/DL (0.2-1.0) Gamma Glutamyl Transpeptidase 55 U/L (5-85) Aspartate Amino Transf (AST/SGOT) 971 U/L (15-37) H Alanine Aminotransferase (ALT/SGPT) 1386 U/L (12-78) H Alkaline Phosphatase 60 U/L (46-116) Total Creatine Kinase 62845 U/L (26-308) H Total Protein 6.2 G/DL (6.4-8.2) L Albumin 3.0 G/DL (3.4-5.0) L Globulin 3.2 g/dL Albumin/Globulin Ratio 0.9 (1.0-2.7) L DELORES BLACKWELL Aug 28, 2017 11:11
[2017-08-28 12:00] VITALS: BP 116/74
--- NOTE | 2017-08-28 12:28 | Nephrology Progress Note ---
Assessment/Plan Problem List: (1) Drug overdose (2) Malignant hyperthemia (3) Rhabdomyolysis Assessment 1. Polydrug overdose. 2. Malignant hyperthermia. 3. Acute respiratory failure, hypoxic type. 4. Altered mental status. Rhabdo ck lowering Much improved electrolytes OK breathing easy tachy Plan Hydrate- watch lytes- monitor CK Subjective ROS Limited/Unobtainable: No Objective Objective Last 24 Hour Vital Signs Date Time Temp Pulse Resp B/P (MAP) Pulse Ox O2 Delivery O2 Flow Rate FiO2 08/28/17 12:00 97.5 74 18 116/74 100 08/28/17 09:22 74 115/65 08/28/17 09:11 65 16 100 Room Air 21 08/28/17 09:03 65 16 98 Room Air 21 08/28/17 09:03 65 16 Room Air 21 08/28/17 08:00 98.2 92 18 115/65 99 08/28/17 04:00 97.2 62 18 108/70 99 08/28/17 01:12 Room Air 08/28/17 01:11 Room Air 21 08/28/17 00:00 97.7 68 18 105/62 98 08/27/17 20:54 87 131/74 08/27/17 20:08 87 18 100 Room Air 21 08/27/17 20:00 97.5 77 18 114/66 99 Nasal Cannula 08/27/17 19:58 78 16 Room Air 21 08/27/17 19:57 78 16 100 Room Air 21 08/27/17 16:00 97.0 85 20 131/74 97 Room Air 08/27/17 13:30 63 18 100 Room Air 21 08/27/17 13:23 62 18 100 Room Air 21 Intake and Output 08/27/17 08/28/17 19:00 07:00 Intake Total 960 ml 2220 ml Output Total 700 ml Balance 960 ml 1520 ml Intake Oral 960 ml 720 ml IV Total 1500 ml Output Urine Total 700 ml # Voids 6 2 # Bowel Movements 2 2 Laboratory Tests 08/28/17 06:10: Sodium Level 141, Potassium Level 4.0, Chloride Level 106, Carbon Dioxide Level 30, Anion Gap 5, Blood Urea Nitrogen 8, Creatinine 0.7, Estimat Glomerular Filtration Rate > 60, Glucose Level 118H, Uric Acid 2.9, Calcium Level 7.7L, Phosphorus Level 3.7, Magnesium Level 1.9, Total Bilirubin 0.8, Gamma Glutamyl Transpeptidase 55, Aspartate Amino Transf (AST/SGOT) 971H, Alanine Aminotransferase (ALT/SGPT) 1386H, Alkaline Phosphatase 60, Total Creatine Kinase 32356M, Total Protein 6.2L, Albumin 3.0L, Globulin 3.2, Albumin/Globulin Ratio 0.9L Height (Feet): 5 Height (Inches): 4.00 Weight (Pounds): 147 General Appearance: no apparent distress Objective wnl SERGE MACHUCA Aug 28, 2017 12:28
[2017-08-28] MEDS: cefTRIAXone 1 GM in D5W 55 ML IVPB SCH (14:06)
[2017-08-28 16:00] VITALS: BP 112/72
--- NOTE | 2017-08-28 18:26 | Pulmonology Progress Note ---
Assessment/Plan Assessment/Plan 1. Polydrug overdose. 2. Malignant hyperthermia, resolved 3. Acute respiratory failure, hypoxic type, resolved 4. Altered mental status, resolved 5. Pneumonia 6. Lupus 7. Hepatitis 8. Vitiligo abx cxr wednesday if still hospitalzied prn nebs fu labs in am check ra sat LFT, CPK still high Subjective Constitutional: Reports: no symptoms HEENT: Repors: no symptoms Respiratory: Reports: dry cough, shortness of breath Gastrointestinal/Abdominal: Reports: no symptoms Genitourinary: Reports: no symptoms Neurologic: Reports: no symptoms Allergies: Coded Allergies: No Known Allergies (Unverified , 08/24/17) Subjective awake anxious no distress on ra Objective Last 24 Hour Vital Signs Date Time Temp Pulse Resp B/P (MAP) Pulse Ox O2 Delivery O2 Flow Rate FiO2 08/28/17 14:04 77 16 100 Room Air 21 08/28/17 13:51 77 16 98 Room Air 21 08/28/17 12:00 97.5 74 18 116/74 100 08/28/17 09:22 74 115/65 08/28/17 09:11 65 16 100 Room Air 21 08/28/17 09:03 65 16 98 Room Air 21 08/28/17 09:03 65 16 Room Air 21 08/28/17 08:00 98.2 92 18 115/65 99 08/28/17 04:00 97.2 62 18 108/70 99 08/28/17 01:12 Room Air 08/28/17 01:11 Room Air 21 08/28/17 00:00 97.7 68 18 105/62 98 08/27/17 20:54 87 131/74 08/27/17 20:08 87 18 100 Room Air 21 08/27/17 20:00 97.5 77 18 114/66 99 Nasal Cannula 08/27/17 19:58 78 16 Room Air 21 08/27/17 19:57 78 16 100 Room Air 21 Intake and Output 08/27/17 08/28/17 19:00 07:00 Intake Total 960 ml 2220 ml Output Total 700 ml Balance 960 ml 1520 ml Intake Oral 960 ml 720 ml IV Total 1500 ml Output Urine Total 700 ml # Voids 6 2 # Bowel Movements 2 2 General Appearance: WD/WN HEENT: atraumatic, anicteric Respiratory/Chest: lungs clear Cardiovascular: normal rate, regular rhythm Abdomen: soft, non tender, no organomegaly Extremities: no cyanosis Skin: lesions Neurologic/Psychiatric: no motor/sensory deficits, oriented x 3 Laboratory Tests 08/28/17 06:10: Sodium Level 141, Potassium Level 4.0, Chloride Level 106, Carbon Dioxide Level 30, Anion Gap 5, Blood Urea Nitrogen 8, Creatinine 0.7, Estimat Glomerular Filtration Rate > 60, Glucose Level 118H, Uric Acid 2.9, Calcium Level 7.7L, Phosphorus Level 3.7, Magnesium Level 1.9, Total Bilirubin 0.8, Gamma Glutamyl Transpeptidase 55, Aspartate Amino Transf (AST/SGOT) 971H, Alanine Aminotransferase (ALT/SGPT) 1386H, Alkaline Phosphatase 60, Total Creatine Kinase 28483D, Total Protein 6.2L, Albumin 3.0L, Globulin 3.2, Albumin/Globulin Ratio 0.9L Current Medications Medications (Trade) Dose Ordered Sig/Antony Route PRN Reason Start Time Stop Time Status Last Admin Dose Admin Acetaminophen (Tylenol) 650 mg Q4H PRN ORAL Mild Pain/Temp > 100.5 08/26/17 23:30 09/25/17 23:29 Albuterol Sulfate (Proventil) 2.5 mg Q6HRT HHN 08/25/17 13:00 08/29/17 16:59 08/28/17 13:51 Ceftriaxone Sodium 1 gm/ Dextrose 55 ml @ 110 mls/hr Q24H IVPB 08/25/17 13:00 09/01/17 12:59 08/28/17 14:06 Dextrose (Dextrose 50%) STAT PRN IV Hypoglycemia 08/25/17 16:45 09/23/17 16:44 Emtricitabine/ Tenofovir (Truvada 200/ 300mg) 1 tab DAILY ORAL 08/25/17 12:00 09/24/17 11:59 08/28/17 09:23 Lorazepam (Ativan 2mg/ml 1ml) 1 mg Q3H PRN IV For Anxiety 08/25/17 13:45 08/31/17 16:44 08/28/17 14:06 Metoprolol Tartrate (Lopressor) 25 mg Q12HR ORAL 08/25/17 21:00 09/24/17 20:59 08/28/17 09:22 Ondansetron HCl (Zofran) 4 mg Q6H PRN IVP Nausea & Vomiting 08/25/17 16:45 09/23/17 16:44 08/27/17 08:41 Pantoprazole (Protonix) 40 mg EVERY 12 HOURS ORAL 08/27/17 14:00 09/26/17 13:59 08/28/17 09:22 Sodium Chloride 1,000 ml @ 150 mls/hr Q6H40M IVLG 08/25/17 12:15 09/23/17 12:14 08/28/17 14:06 LAURIE LUNA DO Aug 28, 2017 18:26
[2017-08-28 20:00] VITALS: BP 121/72
--- NOTE | 2017-08-28 21:07 | General Progress Note ---
Assessment/Plan Assessment/Plan ASSESSMENT AND RECOMMENDATIONS: 1. Anemia secondary to chronic disease, likely secondary to polysubstance abuse as well. Continue to closely monitor. Ferritin level is wnl. 2. 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 Resolved. 3. Polysubstance abuse history in the past with altered mental status. Has been seen by psychiatric social worker 4. Lactic acidosis. Resolved. 5. Respiratory failure, hypoxic. Resolved. Subjective Allergies: Coded Allergies: No Known Allergies (Unverified , 08/24/17) All Systems: reviewed and negative except above Subjective NAD Objective Last 24 Hour Vital Signs Date Time Temp Pulse Resp B/P (MAP) Pulse Ox O2 Delivery O2 Flow Rate FiO2 08/28/17 20:19 66 18 99 Room Air 21 08/28/17 20:13 21 08/28/17 20:13 66 18 99 Room Air 21 08/28/17 20:09 75 18 Room Air 21 08/28/17 16:00 98.2 75 18 112/72 100 08/28/17 14:04 77 16 100 Room Air 21 08/28/17 13:51 77 16 98 Room Air 21 08/28/17 12:00 97.5 74 18 116/74 100 08/28/17 09:22 74 115/65 08/28/17 09:11 65 16 100 Room Air 21 08/28/17 09:03 65 16 98 Room Air 21 08/28/17 09:03 65 16 Room Air 21 08/28/17 08:00 98.2 92 18 115/65 99 08/28/17 04:00 97.2 62 18 108/70 99 08/28/17 01:12 Room Air 08/28/17 01:11 Room Air 21 08/28/17 00:00 97.7 68 18 105/62 98 Intake and Output 08/27/17 08/28/17 19:00 07:00 Intake Total 960 ml 2220 ml Output Total 700 ml Balance 960 ml 1520 ml Intake Oral 960 ml 720 ml IV Total 1500 ml Output Urine Total 700 ml # Voids 6 2 # Bowel Movements 2 2 Laboratory Tests 08/28/17 06:10: Sodium Level 141, Potassium Level 4.0, Chloride Level 106, Carbon Dioxide Level 30, Anion Gap 5, Blood Urea Nitrogen 8, Creatinine 0.7, Estimat Glomerular Filtration Rate > 60, Glucose Level 118H, Uric Acid 2.9, Calcium Level 7.7L, Phosphorus Level 3.7, Magnesium Level 1.9, Total Bilirubin 0.8, Gamma Glutamyl Transpeptidase 55, Aspartate Amino Transf (AST/SGOT) 971H, Alanine Aminotransferase (ALT/SGPT) 1386H, Alkaline Phosphatase 60, Total Creatine Kinase 28661X, Total Protein 6.2L, Albumin 3.0L, Globulin 3.2, Albumin/Globulin Ratio 0.9L Height (Feet): 5 Height (Inches): 4.00 Weight (Pounds): 147 General Appearance: no apparent distress EENT: normal ENT inspection Neck: normal alignment Cardiovascular: normal peripheral pulses Respiratory/Chest: chest wall non-tender Abdomen: normal bowel sounds Extremities: non-tender Neurologic: temporary data entry clerk II-XII grossly normal Ottoniel Martinez Aug 28, 2017 21:07
[2017-08-29] VITALS: BP 125/70
[2017-08-29] MEDS: Albuterol ud Inhalation HHN SCH ×2 (00:34→07:54)
[2017-08-29 04:00] VITALS: BP 113/73
[2017-08-29 07:15] LABS: BASOPHILS % (AUTO) 1.2 % (0.0-2.0); EOSINOPHILS % (AUTO) 2.5 % (0.0-3.0); LYMPHOCYTES % (AUTO) 47.9 % (20.0-45.0); MEAN CORPUSCULAR HEMOGLOBIN 30.8 PG (27.0-31.0); MEAN CORPUSCULAR VOLUME 93 FL (80-99); MEAN PLATELET VOLUME 6.9 FL (6.5-10.1); MONOCYTES % (AUTO) 15.3 % (1.0-10.0); NEUTROPHILS % (AUTO) 33.1 % (45.0-75.0); PLATELET COUNT 229 K/UL (150-450); RED BLOOD COUNT 3.74 M/UL (4.70-6.10); RED CELL DISTRIBUTION WIDTH 12.8 % (11.6-14.8); WHITE BLOOD COUNT 4.1 K/UL (4.8-10.8)
[2017-08-29 07:48] LABS: ALANINE AMINOTRANSFERASE 1031 U/L (12-78); ANION GAP 4 mmol/L (5-15); ASPARTATE AMINO TRANSFERASE 541 U/L (15-37); CALCIUM 7.9 MG/DL (8.5-10.1); CARBON DIOXIDE 31 MMOL/L (21-32); CHLORIDE 107 MMOL/L (98-107); CREATININE 0.7 MG/DL (0.55-1.30); GLOMERULAR FILTRATION RATE > 60 mL/min (>60); SODIUM 141 MMOL/L (136-145); TOTAL PROTEIN 6.4 G/DL (6.4-8.2)
[2017-08-29 07:51] LABS: MAGNESIUM 1.7 MG/DL (1.8-2.4); PHOSPHORUS 4.1 MG/DL (2.5-4.9)
[2017-08-29 08:00] VITALS: BP 118/72
--- NOTE | 2017-08-29 08:26 | Infectious Diseases Prog Note ---
Assessment/Plan Assessment/Plan A; Aspiration pneumonia/pneumonitis treated Methamphetamine overdose Rhabdomyolysis Hyperthermia resolved Hepatitis C Elevation of transaminase P: discontinue Rocephin Subjective ROS Limited/Unobtainable: No Constitutional: Reports: no symptoms Respiratory: Reports: no symptoms Cardiovascular: Reports: no symptoms Gastrointestinal/Abdominal: Reports: no symptoms Genitourinary: Reports: no symptoms Allergies: Coded Allergies: No Known Allergies (Unverified , 08/24/17) Objective Vital Signs Last 24 Hour Vital Signs Date Time Temp Pulse Resp B/P (MAP) Pulse Ox O2 Delivery O2 Flow Rate FiO2 08/29/17 07:55 21 08/29/17 07:54 72 16 100 Room Air 21 08/29/17 07:53 72 16 Room Air 21 08/29/17 04:00 97.4 57 20 113/73 100 08/29/17 00:00 97.9 75 20 125/70 99 Room Air 08/28/17 21:57 72 121/72 08/28/17 20:19 66 18 99 Room Air 21 08/28/17 20:13 21 08/28/17 20:13 66 18 99 Room Air 21 08/28/17 20:09 75 18 Room Air 21 08/28/17 20:00 98.1 71 20 121/72 100 Room Air 08/28/17 16:00 98.2 75 18 112/72 100 08/28/17 14:04 77 16 100 Room Air 21 08/28/17 13:51 77 16 98 Room Air 21 08/28/17 12:00 97.5 74 18 116/74 100 08/28/17 09:22 74 115/65 08/28/17 09:11 65 16 100 Room Air 08/28/17 09:03 65 16 98 Room Air 21 08/28/17 09:03 65 16 Room Air 21 Height (Feet): 5 Height (Inches): 4.00 Weight (Pounds): 147 General Appearance: no acute distress HEENT: mucous membranes moist Respiratory/Chest: lungs clear Cardiovascular: normal rate Abdomen: soft, non tender Extremities: no edema Skin: other - vitiligo Neurologic/Psychiatric: alert, oriented x 3, responsive Laboratory Tests Test 08/29/17 06:33 White Blood Count 4.1 K/UL (4.8-10.8) L Red Blood Count 3.74 M/UL (4.70-6.10) L Hemoglobin 11.5 G/DL (14.2-18.0) L Hematocrit 34.9 % (42.0-52.0) L Mean Corpuscular Volume 93 FL (80-99) Mean Corpuscular Hemoglobin 30.8 PG (27.0-31.0) Mean Corpuscular Hemoglobin Concent 33.0 G/DL (32.0-36.0) Red Cell Distribution Width 12.8 % (11.6-14.8) Platelet Count 229 K/UL (150-450) Mean Platelet Volume 6.9 FL (6.5-10.1) Neutrophils (%) (Auto) 33.1 % (45.0-75.0) L Lymphocytes (%) (Auto) 47.9 % (20.0-45.0) H Monocytes (%) (Auto) 15.3 % (1.0-10.0) H Eosinophils (%) (Auto) 2.5 % (0.0-3.0) Basophils (%) (Auto) 1.2 % (0.0-2.0) Sodium Level 141 MMOL/L (136-145) Potassium Level 4.0 MMOL/L (3.5-5.1) Chloride Level 107 MMOL/L (98-107) Carbon Dioxide Level 31 MMOL/L (21-32) Anion Gap 4 mmol/L (5-15) L Blood Urea Nitrogen 7 mg/dL (7-18) Creatinine 0.7 MG/DL (0.55-1.30) Estimat Glomerular Filtration Rate > 60 mL/min (>60) Glucose Level 107 MG/DL (74-106) H Calcium Level 7.9 MG/DL (8.5-10.1) L Phosphorus Level 4.1 MG/DL (2.5-4.9) Magnesium Level 1.7 MG/DL (1.8-2.4) L Total Bilirubin 0.7 MG/DL (0.2-1.0) Gamma Glutamyl Transpeptidase 56 U/L (5-85) Aspartate Amino Transf (AST/SGOT) 541 U/L (15-37) H Alanine Aminotransferase (ALT/SGPT) 1031 U/L (12-78) H Alkaline Phosphatase 55 U/L (46-116) Total Creatine Kinase 6581 U/L (26-308) H Total Protein 6.4 G/DL (6.4-8.2) Albumin 3.2 G/DL (3.4-5.0) L Globulin 3.2 g/dL Albumin/Globulin Ratio 1.0 (1.0-2.7) Current Medications Medications (Trade) Dose Ordered Sig/Antony Route PRN Reason Start Time Stop Time Status Last Admin Dose Admin Acetaminophen (Tylenol) 650 mg Q4H PRN ORAL Mild Pain/Temp > 100.5 08/26/17 23:30 09/25/17 23:29 08/28/17 22:00 Albuterol Sulfate (Proventil) 2.5 mg Q6HRT HHN 08/25/17 13:00 08/29/17 16:59 08/29/17 07:54 Ceftriaxone Sodium 1 gm/ Dextrose 55 ml @ 110 mls/hr Q24H IVPB 08/25/17 13:00 09/01/17 12:59 08/28/17 14:06 Dextrose (Dextrose 50%) STAT PRN IV Hypoglycemia 08/25/17 16:45 09/23/17 16:44 Emtricitabine/ Tenofovir (Truvada 200/ 300mg) 1 tab DAILY ORAL 08/25/17 12:00 09/24/17 11:59 08/28/17 09:23 Lorazepam (Ativan 2mg/ml 1ml) 1 mg Q3H PRN IV For Anxiety 08/25/17 13:45 08/31/17 16:44 08/28/17 14:06 Metoprolol Tartrate (Lopressor) 25 mg Q12HR ORAL 08/25/17 21:00 09/24/17 20:59 08/28/17 21:57 Ondansetron HCl (Zofran) 4 mg Q6H PRN IVP Nausea & Vomiting 08/25/17 16:45 09/23/17 16:44 08/27/17 08:41 Pantoprazole (Protonix) 40 mg EVERY 12 HOURS ORAL 08/27/17 14:00 09/26/17 13:59 08/28/17 21:58 Sodium Chloride 1,000 ml @ 150 mls/hr Q6H40M IVLG 08/25/17 12:15 09/23/17 12:14 08/29/17 03:20 RADHA PETER Aug 29, 2017 08:26
[2017-08-29 08:32] VITALS: BP 118/72
[2017-08-29] MEDS: Metoprolol 25mg tab ORAL SCH (08:32)
--- NOTE | 2017-08-29 09:50 | General Progress Note ---
Assessment/Plan Problem List: (1) Elevated LFTs ICD Codes: R79.89 - Other specified abnormal findings of blood chemistry SNOMED: 338761066, 081590494 (2) Hepatitis C ICD Codes: B19.20 - Unspecified viral hepatitis C without hepatic coma SNOMED: 69723350 (3) Rhabdomyolysis ICD Codes: M62.82 - Rhabdomyolysis SNOMED: 100336639 (4) Drug abuse ICD Codes: F19.10 - Other psychoactive substance abuse, uncomplicated SNOMED: 63286650 Assessment/Plan LFTs improving fu labs needs out patietn fu for hep C treatment Subjective ROS Limited/Unobtainable: Yes Allergies: Coded Allergies: No Known Allergies (Unverified , 08/24/17) Subjective no event Objective Last 24 Hour Vital Signs Date Time Temp Pulse Resp B/P (MAP) Pulse Ox O2 Delivery O2 Flow Rate FiO2 08/29/17 08:32 74 118/72 08/29/17 08:04 76 20 100 Room Air 08/29/17 08:00 96.2 74 18 118/72 98 08/29/17 07:55 21 08/29/17 07:54 72 16 100 Room Air 08/29/17 07:53 72 16 Room Air 08/29/17 04:00 97.4 57 20 113/73 100 08/29/17 00:00 97.9 75 20 125/70 99 Room Air 08/28/17 21:57 72 121/72 08/28/17 20:19 66 18 99 Room Air 21 08/28/17 20:13 21 08/28/17 20:13 66 18 99 Room Air 21 08/28/17 20:09 75 18 Room Air 08/28/17 20:00 98.1 71 20 121/72 100 Room Air 08/28/17 16:00 98.2 75 18 112/72 100 08/28/17 14:04 77 16 100 Room Air 08/28/17 13:51 77 16 98 Room Air 08/28/17 12:00 97.5 74 18 116/74 100 Intake and Output 08/28/17 08/29/17 19:00 07:00 Intake Total 1000 ml 1350 ml Output Total 920 ml 875 ml Balance 80 ml 475 ml Intake Oral 1000 ml IV Total 1350 ml Output Urine Total 920 ml 875 ml Laboratory Tests 08/29/17 06:33: White Blood Count 4.1L, Red Blood Count 3.74L, Hemoglobin 11.5L, Hematocrit 34.9L, Mean Corpuscular Volume 93, Mean Corpuscular Hemoglobin 30.8, Mean Corpuscular Hemoglobin Concent 33.0, Red Cell Distribution Width 12.8, Platelet Count 229, Mean Platelet Volume 6.9, Neutrophils (%) (Auto) 33.1L, Lymphocytes ( %) (Auto) 47.9H, Monocytes (%) (Auto) 15.3H, Eosinophils (%) (Auto) 2.5, Basophils (%) (Auto) 1.2, Sodium Level 141, Potassium Level 4.0, Chloride Level 107, Carbon Dioxide Level 31, Anion Gap 4L, Blood Urea Nitrogen 7, Creatinine 0.7, Estimat Glomerular Filtration Rate > 60, Glucose Level 107H, Calcium Level 7.9L, Phosphorus Level 4.1, Magnesium Level 1.7L, Total Bilirubin 0.7, Gamma Glutamyl Transpeptidase 56, Aspartate Amino Transf (AST/SGOT) 541H, Alanine Aminotransferase (ALT/SGPT) 1031H, Alkaline Phosphatase 55, Total Creatine Kinase 6581H, Total Protein 6.4, Albumin 3.2L, Globulin 3.2, Albumin/Globulin Ratio 1.0 Height (Feet): 5 Height (Inches): 4.00 Weight (Pounds): 147 General Appearance: no apparent distress EENT: normal ENT inspection Neck: supple Cardiovascular: normal rate Respiratory/Chest: decreased breath sounds Abdomen: normal bowel sounds, non tender, soft Extremities: non-tender KIRILL ANAND Aug 29, 2017 09:49
--- NOTE | 2017-08-29 10:39 | Nephrology Progress Note ---
Assessment/Plan Problem List: (1) Drug overdose (2) Malignant hyperthemia (3) Rhabdomyolysis Assessment 1. Polydrug overdose. 2. Malignant hyperthermia. 3. Acute respiratory failure, hypoxic type. 4. Altered mental status. Rhabdo ck lowering Much improved electrolytes OK breathing easy tachy Plan Hydrate- watch lytes- monitor CK Subjective ROS Limited/Unobtainable: No Objective Objective Last 24 Hour Vital Signs Date Time Temp Pulse Resp B/P (MAP) Pulse Ox O2 Delivery O2 Flow Rate FiO2 08/29/17 08:32 74 118/72 08/29/17 08:04 76 20 100 Room Air 21 08/29/17 08:00 96.2 74 18 118/72 98 08/29/17 07:55 21 08/29/17 07:54 72 16 100 Room Air 21 08/29/17 07:53 72 16 Room Air 21 08/29/17 04:00 97.4 57 20 113/73 100 08/29/17 00:00 97.9 75 20 125/70 99 Room Air 08/28/17 21:57 72 121/72 08/28/17 20:19 66 18 99 Room Air 21 08/28/17 20:13 21 08/28/17 20:13 66 18 99 Room Air 21 08/28/17 20:09 75 18 Room Air 21 08/28/17 20:00 98.1 71 20 121/72 100 Room Air 08/28/17 16:00 98.2 75 18 112/72 100 08/28/17 14:04 77 16 100 Room Air 21 08/28/17 13:51 77 16 98 Room Air 21 08/28/17 12:00 97.5 74 18 116/74 100 Intake and Output 08/28/17 08/29/17 19:00 07:00 Intake Total 1000 ml 1350 ml Output Total 920 ml 875 ml Balance 80 ml 475 ml Intake Oral 1000 ml IV Total 1350 ml Output Urine Total 920 ml 875 ml Laboratory Tests 08/29/17 06:33: White Blood Count 4.1L, Red Blood Count 3.74L, Hemoglobin 11.5L, Hematocrit 34.9L, Mean Corpuscular Volume 93, Mean Corpuscular Hemoglobin 30.8, Mean Corpuscular Hemoglobin Concent 33.0, Red Cell Distribution Width 12.8, Platelet Count 229, Mean Platelet Volume 6.9, Neutrophils (%) (Auto) 33.1L, Lymphocytes ( %) (Auto) 47.9H, Monocytes (%) (Auto) 15.3H, Eosinophils (%) (Auto) 2.5, Basophils (%) (Auto) 1.2, Sodium Level 141, Potassium Level 4.0, Chloride Level 107, Carbon Dioxide Level 31, Anion Gap 4L, Blood Urea Nitrogen 7, Creatinine 0.7, Estimat Glomerular Filtration Rate > 60, Glucose Level 107H, Calcium Level 7.9L, Phosphorus Level 4.1, Magnesium Level 1.7L, Total Bilirubin 0.7, Gamma Glutamyl Transpeptidase 56, Aspartate Amino Transf (AST/SGOT) 541H, Alanine Aminotransferase (ALT/SGPT) 1031H, Alkaline Phosphatase 55, Total Creatine Kinase 6581H, Total Protein 6.4, Albumin 3.2L, Globulin 3.2, Albumin/Globulin Ratio 1.0 Height (Feet): 5 Height (Inches): 4.00 Weight (Pounds): 147 General Appearance: no apparent distress Objective wnSERGE Jones Aug 29, 2017 10:39
[2017-08-29] MEDS ORDERED: Flu Vaccine Quadrivalent 0.5ml IM ONE (10:45)
[2017-08-29] MEDS ORDERED: Magnesium Oxide 400mg tab ORAL SCH (11:00)
[2017-08-29] MEDS ORDERED: NS 275ml ONE (11:28)
[2017-08-29] MEDS ORDERED: Tubing IV Secondary IV ONE ×2 (11:28)
[2017-08-29] MEDS ORDERED: NS 500ML ONE (11:28)
--- NOTE | 2017-08-29 20:55 | General Progress Note ---
Assessment/Plan Assessment/Plan ASSESSMENT AND RECOMMENDATIONS: 1. Anemia secondary to chronic disease, likely secondary to polysubstance abuse as well. Continue to closely monitor. Ferritin level is wnl. 2. 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 Resolved. 3. Polysubstance abuse history in the past with altered mental status. Has been seen by social media strategist 4. Lactic acidosis. Resolved. 5. Respiratory failure, hypoxic. Resolved. Subjective Allergies: Coded Allergies: No Known Allergies (Unverified , 08/24/17) All Systems: reviewed and negative except above Subjective NAD Objective Last 24 Hour Vital Signs Date Time Temp Pulse Resp B/P (MAP) Pulse Ox O2 Delivery O2 Flow Rate FiO2 08/29/17 08:32 74 118/72 08/29/17 08:04 76 20 100 Room Air 21 08/29/17 08:00 96.2 74 18 118/72 98 08/29/17 07:55 21 08/29/17 07:54 72 16 100 Room Air 21 08/29/17 07:53 72 16 Room Air 21 08/29/17 04:00 97.4 57 20 113/73 100 08/29/17 00:00 97.9 75 20 125/70 99 Room Air 08/28/17 21:57 72 121/72 Intake and Output 08/28/17 08/29/17 19:00 07:00 Intake Total 1000 ml 1350 ml Output Total 920 ml 875 ml Balance 80 ml 475 ml Intake Oral 1000 ml IV Total 1350 ml Output Urine Total 920 ml 875 ml Laboratory Tests 08/29/17 06:33: White Blood Count 4.1L, Red Blood Count 3.74L, Hemoglobin 11.5L, Hematocrit 34.9L, Mean Corpuscular Volume 93, Mean Corpuscular Hemoglobin 30.8, Mean Corpuscular Hemoglobin Concent 33.0, Red Cell Distribution Width 12.8, Platelet Count 229, Mean Platelet Volume 6.9, Neutrophils (%) (Auto) 33.1L, Lymphocytes ( %) (Auto) 47.9H, Monocytes (%) (Auto) 15.3H, Eosinophils (%) (Auto) 2.5, Basophils (%) (Auto) 1.2, Sodium Level 141, Potassium Level 4.0, Chloride Level 107, Carbon Dioxide Level 31, Anion Gap 4L, Blood Urea Nitrogen 7, Creatinine 0.7, Estimat Glomerular Filtration Rate > 60, Glucose Level 107H, Calcium Level 7.9L, Phosphorus Level 4.1, Magnesium Level 1.7L, Total Bilirubin 0.7, Gamma Glutamyl Transpeptidase 56, Aspartate Amino Transf (AST/SGOT) 541H, Alanine Aminotransferase (ALT/SGPT) 1031H, Alkaline Phosphatase 55, Total Creatine Kinase 6581H, Total Protein 6.4, Albumin 3.2L, Globulin 3.2, Albumin/Globulin Ratio 1.0 Height (Feet): 5 Height (Inches): 4.00 Weight (Pounds): 147 General Appearance: no apparent distress EENT: normal ENT inspection Neck: normal alignment Cardiovascular: normal peripheral pulses Neurologic: molding technician II-XII grossly normal Skin: warm/dry Ottoniel Martinez Aug 29, 2017 20:55
--- NOTE | 2017-08-31 14:42 | Diagnostic Imaging Report ---
Indication: Elevated liver function tests Technique: Grayscale and duplex Doppler imaging of the abdomen performed. Comparison: None Findings: 2 cm well-circumscribed focus within the liver, uniformly echogenic relative to liver parenchyma noted. This is probably a hemangioma. Findings may be confirmed by a dynamic contrast-enhanced CT or MRI. The demonstrated part of the pancreas, gallbladder, aorta and IVC, both kidneys, spleen appear unremarkable. There is no biliary ductal dilatation identified. Doppler evaluation of the main portal vein shows patency. There is no ascites. No hydronephrosis seen. Impression: No acute findings. 2 cm suspected hemangioma in the liver.
--- NOTE | 2017-09-02 15:16 | Discharge Summary ---
Discharge Summary Hospital Course Date of Admission Aug 24, 2017 at 14:22 Date of Discharge Aug 29, 2017 at 11:29 Admitting Diagnosis AMS, OD HPI Valerio Leach is a 26 year old male who was admitted on Aug 24, 2017 at 14:22 for Altered Mental Status,Overdose Hospital Course dc summary #[id number] Discharge Medications Continued Medications: No Known Medications* (NKM - No Known Medications*) . 0 ., 0 Refills Discharge Condition Upon Discharge: stable Discharge Disposition Patient was discharged home Discharge Diagnoses: Discharge Instructions Discharge Instructions Special Instructions I have been assigned to complete a D/C Summary on this account. I was not involved in the patient management Lisandro Boucher)Amanda NP Sep 02, 2017 15:16
--- NOTE | 2017-09-03 11:00 | Discharge Summary 2 SIG ---
DATE OF ADMISSION: 08/24/2017 DATE OF DISCHARGE: 08/29/2017 REASON FOR ADMISSION: 26-year-old male presented to the emergency room by paramedics for possible overdose. His friend called 911 after the patient took unknown amount of methamphetamine and bath salts. The friend saw the patient shaking on the ground. In the emergency department, the patient found to have a fever of 107.5 and pulse rate of 136. The patient was hypoxic. CBC and CMP were unremarkable. Lactic acid was severely elevated -14.4. Drug screen was positive for amphetamine and marijuana. ABG was significant for pO2 of 49.9 and acidosis. BUN - 20, creatinine -1.9.CT of the head was unremarkable. CT of the chest revealed left lower lobe consolidation. In the emergency department, aggressive cooling measures including multiple liters of the IV fluids, cooling blanket, and ice packs were provided. Temperature eventually reduced to normal level. The patient became less tachycardic. Initially, the patient was on 100% nonrebreathing mask and weaned down to 6 liter of oxygen via mask. No need for intubation, since the patient was able to protect his airway. The patient was admitted for further management with diagnosis of malignant hypothermia, drug overdose, lactic acidosis, acute kidney injury, and acute hypoxic respiratory failure. HOSPITAL COURSE: The patient admitted. Pulmonary, GI, ID, and Nephrology consults were requested. The patient was on aggressive hydration. Supplemental oxygen titrated to keep saturation above 92%. Pulmonary toilet was provided. Temperature returned down to normal. Followup chest x-ray on 08/27/2017 revealed left basilar infiltrate. The patient was on antibiotic. ID followed. The patient status post treatment for antibiotic for aspiration pneumonia versus pneumonitis. No leukocytosis. Follow up chest x-ray prior to discharge on 08/27/2017 revealed significant improvement of aeration in the left lung compared to the prior exam. Director Report closely followed the patient. Prior to discharge, pulse oximetry stable on room air, no evidence of respiratory distress. Renal parameters were closely monitored. Upon admission, CK was stable, but the next day, CK up to 22,334. The patient was provided with aggressive hydration. CK, renal parameters, and electrolytes were closely monitored. Electrolytes collected as needed. Nephrotoxics were avoided. Marketing Strategy Analyst closely followed. CK down to 6581 and BUN and creatinine down to normal. BUN -7, creatinine- 0.7. Lactic acid down to 0.9. The patient also noted to have elevated LFT. Abdominal ultrasound revealed 2 cm suspected hemangioma in the liver, but no other acute changes. LFT were closely monitored, trending down. Hepatitis panel was positive for hepatitis C. Gastrointestinal specialist closely followed, recommended outpatient hepatitis C treatment. Neurologist initially seen the patient and diagnosed the patient with acute intoxication resulting in toxic encephalopathy and malignant hyperthermia. He added thiamine, recommended to avoid hypertension by maintaining systolic blood pressure above 110 and below 140. The patient with a history of lupus, follow up with the primary medical doctor. All consultants cleared the patient for discharge.The patient was stable for discharge. FINAL DIAGNOSES: 1. Acute intoxication with methamphetamine and bath salts resulted in toxic encephalopathy. 2. Malignant hypothermia, resolved. 3. Acute hypoxemic respiratory failure, resolved. 4. Aspiration pneumonia versus pneumonitis, status post treatment. 5. Acute kidney injury, resolved. 6. Rhabdomyolysis, likely secondary to drug overdose, resolved. 7. Lactic acidosis, resolved. 8. Polydrug overdose (methamphetamine and bath salt). 9. Hepatitis C. 10. Transaminitis. 11. Lupus. 12. Anemia of chronic disease. DISCHARGE MEDICATIONS: See medication reconciliation list. DISCHARGE INSTRUCTIONS: The patient was discharged home. Follow up with the primary medical doctor. The patient was counseled on abstinence from the street drugs. Keri Vance M.D. I have been assigned to dictate discharge summary on this account and I was not involved in the patient's management. Amanda Magañ[facility] centerAnthony N.PVal DR: ISHMAEL JOB#: [id number] CC: [id number]
--- NOTE | 2017-09-04 18:16 | Consultation ---
DATE OF CONSULTATION: 08/24/2017 CARDIOLOGY CONSULTATION CONSULTING PHYSICIAN: Onur Rojas M.D. REFERRING PHYSICIAN: Keri Vance M.D. REASON FOR CONSULTATION: Tachycardia. HISTORY OF PRESENT ILLNESS: The patient is a very unfortunate 26-year-old gentleman, who was brought in by ambulance for possible overdose. The patient's friend apparently called 911 after the patient took unknown amount of meth and bath salts together. The patient's friend saw the patient shaking on the ground. There is no prior past medical history from the patient according to the records. On arrival to the emergency department, blood pressure was 146/131 mmHg, heart rate was 136, the patient's temperature was 107.5 degrees Fahrenheit, and O2 saturation 95% on room air. The patient's head CT in the emergency department was unremarkable. CT of chest showed left lower lobe aspiration with moderate effusion of the right side. He was given 6 L oxygen in the emergency department, IV Ativan, and several liters of normal saline, which helped him to improve over time. He was admitted to the telemetry under the service of Dr. Vance. PAST MEDICAL HISTORY: None. ALLERGIES: No known drug allergies. SOCIAL HISTORY: History of polysubstance abuse. FAMILY HISTORY: No premature coronary artery disease or arrhythmogenic in the first-degree relatives. REVIEW OF SYSTEMS: HEENT: Denies any headache, diplopia, or blurred vision. CONSTITUTIONAL: The patient has very high-grade fevers, generalized weakness, and sweating. CARDIOVASCULAR: Denies any chest pain, shortness breath, PND, orthopnea, or leg swelling. PULMONARY: Denies any cough, hemoptysis, or wheezing. GASTROINTESTINAL: Denies any nausea, vomiting, diarrhea, constipation, abdominal pain, or GI bleed. GENITOURINARY: Denies any hematuria, dysuria, or incontinence. NEUROLOGIC: Denies any motor dysfunction, sensory deficit, or altered speech. PHYSICAL EXAMINATION: VITAL SIGNS: At the time of arrival to the emergency department, blood pressure was 146/131 mmHg, respirations of 18, pulse of 136, O2 saturation 95% on room air, and temperature 107.5 degrees Fahrenheit. GENERAL: The patient is a very unfortunate gentleman, who is tachycardic and tachypneic at the time of arrival to the emergency department. At this time, he is calmer. young gentleman, who is diaphoretic on oxygen mask. HEENT: Atraumatic, normocephalic. Anicteric. Pupils are equal, round, and reactive to light and accommodation. Extraocular muscles intact. NECK: JVP is less than 5 cmH2O. No carotid bruit. Carotid upstrokes 2+ bilaterally. CARDIOVASCULAR: Normal S1, S2. Regular rate and rhythm. Tachycardic. No murmurs, gallops, or rubs. LUNGS: Clear to auscultation bilaterally. ABDOMEN: Soft, nontender, nondistended. No hepatosplenomegaly. Positive bowel sounds. EXTREMITIES: No evidence of edema, clubbing, or cyanosis. LABORATORY AND DIAGNOSTIC DATA: CT of chest showed primarily left lower lobe aspiration with effusion on the right side. A 12-lead electrocardiogram shows sinus rhythm at 99 with rightward axis, prolonged QT interval, abnormal EKG. Chest x-ray showed no acute process. Laboratory findings, WBC 8.3, hemoglobin was 12.3, hematocrit was 38.2, and platelet count was 402,000. Sodium 139, potassium is 4.8, chloride 99, bicarbonate 15, BUN of 20, creatinine 1.9, glucose is 80. Troponin I was 0.00. Toxicology showed positive amphetamines and marijuana. ASSESSMENT AND PLAN: The patient is a very unfortunate 26-year-old gentleman, who is admitted following drug overdose. The patient is seen in Cardiology consultation at request of Dr. Vance. 1. Sinus tachycardia due to amphetamine use, severe hypovolemia, and acute renal failure. The patient requires copious amount of fluids, both intravenously and orally. The patient does not have any prior history of cardiac disease. We will continue following the patient's improvement in the next few days. If necessary, we will manage the patient accordingly and may order 2D echocardiography. 2. Acute respiratory acidosis. 3. Malignant hyperthermia. 4. Acute kidney injury. I would like to thank, , for the courtesy of this consultation. Onur Rojas M.D. DR: Adriel JOB#: [id number] CC:
== END 2017-08-29 11:29 | disposition home or self-care (01) | DRG 812 ==
LOC: EDBD 13:41 → EMR 14:10 → 2E 14:22 → EDBEDREQ 14:37 → EDBEDREQSVC 14:55 → EDBEDREQ 14:55 → ICU 22:57 → 3E 08-25 11:30
DX: T43.621A Poisoning by amphetamines, accidental (unintentional), initial encounter (principal); J96.01 Acute respiratory failure with hypoxia; J69.0 Pneumonitis due to inhalation of food and vomit; G92 Toxic encephalopathy; N17.9 Acute kidney failure, unspecified; E87.2 Acidosis; M32.9 Systemic lupus erythematosus, unspecified; T43.691A Poisoning by other psychostimulants, accidental (unintentional), initial encounter; Y92.009 Unspecified place in unspecified non-institutional (private) residence as the place of occurrence of the external cause; R50.2 Drug induced fever; R41.82 Altered mental status, unspecified; Y92.9 Unspecified place or not applicable; D63.8 Anemia in other chronic diseases classified elsewhere; F19.10 Other psychoactive substance abuse, uncomplicated; B19.20 Unspecified viral hepatitis C without hepatic coma; R25.1 Tremor, unspecified; F32.9 Major depressive disorder, single episode, unspecified; M62.82 Rhabdomyolysis; F17.200 Nicotine dependence, unspecified, uncomplicated; L80 Vitiligo
CPT/HCPCS: 36415; 36600; 51702; 70450; 71010; 71020; 71250; 76700; 80053; 80061; 80307; 80329; 82248; 82550; 82553; 82728; 82803; 82977; 83605; 83735; 84100; 84443; 84484; 84550; 85025; 86140; 86705; 86709; 86803; 87081; 87340; 93005; 94640; 94664; 94760; J2405